=== PATIENT | male | born 1965 | race Caucasian/White ===

== ENCOUNTER 2016-07-11 12:59 | Inpatient (IN) | payer BC, OTHER ==
[~2016-07-11] VITALS: Ht 177.8 cm; Wt 129.0 kg
[2016-07-11] VITALS (20 sets, daily range): BP systolic 113–142; BP diastolic 64–88; PULSE 84–98; RESP 11–24; Ht 177.8 cm; Wt 129.0 kg
[2016-07-11] MEDS ORDERED: CEFAZOLIN 2 GM/50 ML (PMX) 50 ML IVPB ONE (13:30)
[2016-07-11] MEDS ORDERED: LACTATED RINGER'S 1,000 ML IV* ONE (13:30)
[2016-07-11] MEDS ORDERED: OMEP20CA16 PO (13:41)
[2016-07-11] MEDS ORDERED: METO100T13 PO (13:41)
[2016-07-11] MEDS ORDERED: TAMS0.4C2 PO (13:42)
[2016-07-11] MEDS ORDERED: SIMV40TA2 PO (13:43)
[2016-07-11] MEDS ORDERED: AMLO1CAP10 PO (13:43)
[2016-07-11] MEDS ORDERED: DULO60CA59 PO (13:43)
[2016-07-11] MEDS ORDERED: DIAZ10TA4 PO (13:44)
[2016-07-11] MEDS ORDERED: CYCL-319 PO (13:44)
[2016-07-11] MEDS ORDERED: SITA100T8 PO (13:51)
[2016-07-11] MEDS ORDERED: OXYC5CAP17 PO (13:51)
[2016-07-11] MEDS ORDERED: ALLO300T2 PO (13:52)
[2016-07-11] MEDS ORDERED: METO10TA92 PO (13:53)
[2016-07-11] MEDS ORDERED: METF1000 PO (13:54)
[2016-07-11] MEDS ORDERED: LANT3I SC (13:55)
[2016-07-11] MEDS ORDERED: SUMA100T4 PO (13:56)
[2016-07-11] MEDS ORDERED: ELUX75TA PO (13:57)
[2016-07-11] MEDS ORDERED: [UNRECOGNIZED DRUG - CODE] PO (14:01)
--- NOTE | 2016-07-11 15:53 | HPN ---
Date/Time of Note Date/Time of Note DATE: 07/11/16 TIME: 15:52 Interval H&P Admission Note Pt. seen H&P reviewed: No system changes LE MINAYA MD July 11, 2016 15:53
[2016-07-11] MEDS ORDERED: THROMBIN 5000 UNIT VIAL ONE (16:13)
[2016-07-11] MEDS ORDERED: POLYMYXIN/BACITRACIN 1L IRRIG ONE (16:13)
[2016-07-11] MEDS ORDERED: BUPIVACAINE 0.25%/EPI (SDV) 30 ML INJ ONE (16:13)
[2016-07-11] MEDS ORDERED: FENTAnyl 50 MCG/ML VIAL ONE (16:18)
[2016-07-11] MEDS ORDERED: MIDAZOLAM 1 MG/ML 2 ML INJ ONE (16:18)
[2016-07-11] MEDS ORDERED: SUCCINYLCHOLINE CHLORIDE 100 MG/5 ML SYG IV ONE (16:18)
[2016-07-11] MEDS ORDERED: PROPOFOL 20 ML ONE (16:18)
[2016-07-11] MEDS ORDERED: METOCLOPRAMIDE 10 MG INJ ONE (16:19)
[2016-07-11] MEDS ORDERED: CEFAZOLIN 1 GM INJ ONE (17:15)
[2016-07-11] MEDS ORDERED: ROCURONIUM 50 MG INJ ONE ×2 (17:15→18:08)
[2016-07-11] MEDS ORDERED: DEXAMETHASONE 4 MG/ML 1 ML INJ ONE (17:17)
[2016-07-11] MEDS ORDERED: POLYMYXIN/BACITRACIN 1L IRRIG IRR ONE (17:53)
[2016-07-11] MEDS ORDERED: HEMOSTATIC MATRIX/ THROMBIN 1 EA SYG ZFS ONE (17:54)
[2016-07-11] MEDS ORDERED: METOCLOPRAMIDE 10 MG INJ IV PRN (18:30)
[2016-07-11] MEDS ORDERED: LABETALOL HCL 20MG INJ IV PRN (18:30)
[2016-07-11] MEDS ORDERED: ONDANSETRON 4 MG INJ IV PRN (18:30)
[2016-07-11] MEDS ORDERED: MEPERIDINE 25 MG INJ IV PRN (18:30)
[2016-07-11] MEDS ORDERED: HYDROmorphONE (0.2 MG/ML) 10ML SYG IV PRN ×3 (18:30)
[2016-07-11] MEDS ORDERED: DIPHENHYDRAMINE 50 MG INJ IV PRN (18:30)
[2016-07-11] MEDS ORDERED: hydrALAzine 20 MG INJ IV PRN (18:30)
[2016-07-11] MEDS ORDERED: ETOMIDATE 20 MG INJ ONE (19:01)
--- NOTE | 2016-07-11 19:47 | OPR ---
Date/Time of Note Date/Time of Note DATE: 07/11/16 TIME: 19:39 Operative Report Free Text/Dictation DATE OF OPERATION: 07/11/2016 PREOPERATIVE DIAGNOSES: L3-4 adjacent segment spinal stenosis with neurogenic claudication above prior L4-S1 fusion POSTOPERATIVE DIAGNOSES: L3-4 adjacent segment spinal stenosis with neurogenic claudication above prior L4-S1 fusion OPERATION PERFORMED: L3-4 bilateral laminectomy, medial facetectomy, and foraminotomy SURGEON: Le Minaya MD FORM TAMPING MACHINE OPERATOR: Mariano Schroeder MD ANESTHESIA: General endotracheal ESTIMATED BLOOD LOSS: 300 mL COMPLICATIONS: None SURGICAL INDICATION: The patient is a 50 year-old woman who presents with an increasing history of bilateral lower extremity pain. He has a past medical history significant for a L4-S1 posterior spinal instrumented fusion. The patient was unable to ambulate significant distances secondary to their pain. The patient had failed conservative treatment. Risks, benefits, and alternatives to a decompressive procedure including but not exclusive of risks of bleeding, infection, nerve injury, cauda equina syndrome, iatrogenic instability requiring fusion, dural tear, myocardial infarction, stroke, pulmonary embolism were explained to the patient, and she wished to proceed. DESCRIPTION OF TECHNIQUE: The patient was identified in the preoperative area and taken to the operating room. Rapid induction of general endotracheal anesthesia was performed. Patient was given 3 g of cefazolin for prophylaxis. The patient was then placed in the prone position on the Kevyn flat top table on a Tyron frame with all bony prominences well padded. The back was prepped and draped in usual sterile manner. Using 2 spinal needles and intraoperative fluoroscopy, the L3-4 level was clearly identified. The skin was injected using 0.25% Marcaine with epinephrine. Longitudinal midline incision was then created using a 10 blade. Further dissection through soft tissue was performed using electrocautery down to the bilateral spinous processes. Dissection was taken down the bilateral lamina and over the facet joint capsules of L3-4. A self-retaining retractor was applied. Again, intraoperative fluoroscopy confirmed the level. The microscope was brought into use for microdissection. The L3 spinous process and interspinous ligaments were removed using an rongeur. The high-speed bur was used to thin bilateral L3 lamina. Kerrison rongeurs were then used to resect bilateral lamina, and a small portion of the medial facets and the bone overlying the foramen. Ligamentum flavum was also resected using the Kerrison rongeurs. There was a portion of scar tissue adherent to the dural inferiorly. This was meticulously dissected using a series of curretes and resected using a series of Kerrisons. Care was taken to protect the thecal sac throughout the decompressive procedure. Palpation with a ball-tip probe did not reveal any further stenosis in the central, subarticular, or foraminal areas. The exiting L3 nerve root and traversing L4 nerve roots were both directly visualized bilaterally and noted to be decompressed. The cephalad and caudad extent of the decompression were also confirmed using ball-tip probes and intraoperative fluoroscopy. The wound was irrigated copiously using normal saline. Meticulous attention was paid toward hemostasis using bipolar cautery, FloSeal, Gelfoam and thrombin. Care was taken to remove all FloSeal and Gelfoam and thrombin prior to wound closure. A medium hemovac was placed and the fascia was then closed using 1 Vicryl in an interrupted fashion. Subcutaneous tissue was closed using 2-0 Vicryl in interrupted fashion. Skin was closed using a running 4-0 Monocryl stitch. The wound was dressed using Dermabond, sterile 4x4 gauze and Tegaderm. The patient was returned to the supine position. They were extubated immediately postoperatively and taken to the recovery room in stable condition. Estimated Blood Loss: 250 - 300 ml's Complications: None Pt Condition Post Procedure: stable Disposition: PACU LE MINAYA MD July 11, 2016 19:47
[2016-07-11] MEDS ORDERED: NALOXONE (0.4 MG/ML) INJ IV PRN (20:00)
[2016-07-11] MEDS ORDERED: NACL 0.9% 3 ML SYG IV SCH (20:00)
[2016-07-11] MEDS ORDERED: PROCHLORPERAZINE 10 MG TAB PO PRN (20:00)
[2016-07-11] MEDS ORDERED: INSULIN GLARGINE [LANtus] 3 ML PEN SC SCH (20:00)
[2016-07-11] MEDS ORDERED: HYDROCODONE/APAP (5/325) TAB PO PRN ×2 (20:00)
[2016-07-11] MEDS: HYDROmorphONE 0.2 MG/ML PCA IV SCH (20:01)
[2016-07-11] MEDS ORDERED: DEXTROSE 50% 50 ML SYRINGE IV PRN ×2 (21:00)
[2016-07-11] MEDS: ACCU-CHEK XX SCH (21:00)
[2016-07-11] MEDS ORDERED: GLUCOSE GEL 15 GRAM TUBE BUCCAL PRN (21:00)
[2016-07-11] MEDS ORDERED: GLUCAGON 1 MG INJ IM PRN (21:00)
[2016-07-11] MEDS ORDERED: GLUCOSE GEL 15 GRAM TUBE PO PRN ×2 (21:00)
[2016-07-11] MEDS ORDERED: metFORMIN 500 MG TAB PO ONE (22:30)
[2016-07-11] MEDS ORDERED: INSULIN GLARGINE [LANtus] 3 ML PEN SC ONE (22:30)
[2016-07-12] MEDS: HYDROmorphONE 0.2 MG/ML PCA IV SCH ×2 (00:57→10:59)
[2016-07-12] MEDS: CEFAZOLIN 1 GM/50 ML (PMX) 50 ML IVPB SCH ×4 (01:32→17:39)
[2016-07-12] MEDS: ACCU-CHEK XX SCH ×5 (02:56→21:11)
[2016-07-12 04:56] LABS: HEMATOCRIT 38.7 % (42.0-52.0); HEMOGLOBIN 12.8 g/dl (14.0-18.0)
[2016-07-12 05:47] LABS: CALCIUM 8.8 mg/dl (8.4-10.2); CREATININE 0.83 mg/dl (0.61-1.24); POTASSIUM 4.3 mmol/L (3.5-5.1)
--- NOTE | 2016-07-12 07:18 | PREOPHP ---
DATE OF ADMISSION: 07/11/2016 MEDICAL CONSULTATION REFERRING PHYSICIAN: Dr. Minaya. Thank you Dr. Minaya for asking me to see this patient in medical consultation. INTRODUCTION: This is a 50-year-old male scheduled for a lumbar vertebral 3 decompression. HISTORY OF PRESENT ILLNESS: Apparently, the patient has long-standing history of cervical and lumba r degenerative disk disease. The patient has had L4-S1 fusion in the past. The patient recently wa s treated with epidural which failed. He has been complaining of persistent low back pain radiating to the lower extremities. PAST MEDICAL HISTORY: Significant for: 1. History of diabetes mellitus type 2. 2. History of gout. 3. Hyperlipidemia 4. Hypertension. 5. Depression. 6. Gastroparesis. 7. Insomnia. PAST SURGICAL HISTORY: Significant for: 1. L4-S1 laminectomy and then fusion in 2011. 2. Cervical spine fusion x2, between C4 and C7. 3. Right clavicle open reduction internal fixation. 4. Bilateral knee surgery, open surgery on the left side and arthroscopic surgery on the right side . MEDICATIONS: Patient's medications include: 1. Fosamax 0.4 at bedtime. 2. Cymbalta 60 mg daily. 3. Toprol XL 100 mg daily. 4. Lotrel 5/20 daily. 5. Omeprazole 20 mg daily. 6. Simvastatin 40 mg at bedtime. 7. Niaspan 500 mg daily. 8. Lantus 15 units in the morning. 9. Allopurinol 300 mg every other day. 10. Reglan 10 mg 3 times p.r.n. 11. Januvia 100 mg daily. 12. Tylenol p.r.n. 13. Diazepam 10 mg at bedtime p.r.n. 14. Oxycodone 5 mg 3 times as needed. ALLERGIES: PATIENT DOES NOT HAVE DRUG ALLERGIES. SOCIAL HISTORY: Negative history of alcohol or drug abuse. He used to smoke a pack per day for 10, quit 16 years ago. Single, no kids, stays at home. FAMILY HISTORY: Father at the age of 75. He has AML. He had hypertension, hyperlipidemia. M other 76. She has diabetes, high blood pressure, degenerative disk disease. The patient has 1 sist er who has a history of diabetes mellitus. REVIEW OF SYSTEMS: GENERAL: Denies fever, chills, gaining or losing weight. EYES: Negative for double, blurred vision, eye pain. ENT: Negative for sore throat, ear pain, and congestion. CARDIOVASCULAR: Negative for chest pain, PND, palpitation. RESPIRATORY: Negative for shortness of breath, cough, hemoptysis. GASTROINTESTINAL: Negative for nausea, vomiting, constipation, diarrhea, abdominal pain. GENITOURINARY: Negative for dysuria, frequency, nocturia. ENDOCRINOLOGY: The patient with history of diabetes mellitus. Negative history of thyroid dysfunct ion. HEMATOLOGY: Negative history of easy bruising or bleeding. NEUROLOGICAL: The patient denies any history of seizure, stroke, numbness, tingling, weakness. PHYSICAL EXAMINATION: VITAL SIGNS: Well-developed, obese male in no acute distress. VITAL SIGNS: Temperature 97.1, heart rate 60, respiratory rate 16, blood pressure 115/80. HEAD: Atraumatic, normocephalic. SKIN: No rash, no lesion, no bruises, no hematomas. NECK: Supple. No lymphadenopathy, no thyromegaly. Negative for jugular vein distention. Negative for carotid bruits. HEENT: Pupils equal, round, reactive to light and accommodation. Extraocular movements intact. No peripheral edema. Ears: Normal tympanic membranes bilateral. Nose: Clear. Throat: No erythema , no exudate. HEART: Regular rate and rhythm. Normal S2. Normal S2. No S3. No S4. No murmur. No gallops. LUNGS: Clear to auscultation bilaterally. No rales. No wheezes. ABDOMEN: Soft, nontender, nondistended, positive bowel sounds. Negative hepatosplenomegaly. EXTREMITIES: No Dr. Cecilio Graham dicated medical constuation for Dr. Le Minaya MD. Dictated By: LE SAMS/MARK Conf#: [id number] DID#: [id number] CC: LE MINAYA MD;*EndCC*
--- NOTE | 2016-07-12 07:29 | CONS ---
DATE OF ADMISSION: 07/11/2016 DATE OF CONSULTATION: Thank you, Dr. Fuentes, for asking me to see this patient in medical consultation. INTRODUCTION: This is a 50-year-old male scheduled for an L3 decompression surgery due to severe de generative disk disease. HISTORY OF PRESENT ILLNESS: Apparently the patient has a longstanding history of cervical lumbar sp ine and degenerative disk disease. The patient has had a L4 through S1 fusion in the past. Now, th e patient developed severe pain radiating into both legs. The patient was treated with epidural and failed it. Now he has been scheduled for decompression surgery. PAST MEDICAL HISTORY: 1. History of diabetes mellitus type 2. 2. Hypertension. 3. Hyperlipidemia. 4. Gastroparesis. 5. Insomnia. 6. Depression. 7. Obesity. PAST SURGICAL HISTORY: Significant for: 1. L4 through S1 laminectomy and fusion in 2011. 2. Cervical spine fusion x2, C4 through C7 3. Right clavicle open reduction internal fixation. 4. Bilateral knee surgery, left open surgery and a right arthroscopy. MEDICATIONS: Patient medications include: 1. Flomax 0.4 at bedtime. 2. Cymbalta 30 mg daily. 3. Toprol-XL 100 mg daily. 4. Lotrel 5/20 daily. 5. Omeprazole 20 mg daily. 6. Simvastatin 40 mg daily. 7. Niaspan 500 mg daily. 8. Lantus 50 units daily. 9. Allopurinol 300 mg every other day. 10. Metformin 1000 twice a day. 11. Januvia 100 daily. 12. Reglan 10 mg 3 times p.r.n. 13. Oxycodone 5 mg 3 times as needed. 14. Tylenol as needed. 15. Flexeril as needed. ALLERGIES: NO KNOWN DRUG ALLERGIES. SOCIAL HISTORY: The patient used to smoke a pack per day for 10 years, quit 16 years ago. Negative history of alcohol, drug abuse and single, no kids. He lives with his mother. FAMILY HISTORY: Father at age of 75 from AML. He had high blood pressure, hyperlipidemia. Mo ther is 76. She has diabetes mellitus, high blood pressure. One sister, prediabetes. REVIEW OF SYSTEMS: GENERAL: Denies fever, chills, gaining or losing weight. Eyes: Negative for double blurry vision, eye pain. ENT: Negative for sore throat, ear pain and congestion. CARDIOVASCULAR: Negative for chest pain, PND, palpitation. RESPIRATORY: Negative for shortness of breath, cough, hemoptysis. GASTROINTESTINAL: Negative for nausea, vomiting, constipation, diarrhea, abdominal pain. The patie nt has history of gastroparesis. GENITOURINARY: Negative for dysuria, frequency, nocturia. ENDOCRINOLOGY: The patient has history of diabetes mellitus. Negative history of thyroid dysfuncti on. HEMATOLOGY: Negative history of easy bruising and bleeding. NEUROLOGICAL: The patient denies any history of seizure, stroke, numbness, tingling, weakness. PHYSICAL EXAMINATION: VITAL SIGNS: Well-developed, obese male in no acute distress. VITAL SIGNS: Temperature 97.1, heart rate 60, respiratory rate 16, blood pressure 115/80. HEENT: Atraumatic, normocephalic. SKIN: No rash, no lesion, no bruises, no hematomas. NECK: Supple, no lymphadenopathy, no thyromegaly. Negative jugular venous distention. Negative fo r carotid bruits. HEENT: Pupils equal, round, reactive to light and accommodation. Extraocular movements intact, ___ __ edema. EARS: Normal tympanic membranes bilaterally. Nose clear. Throat, no erythema. No exudate. HEART: Regular rate, rhythm. Normal S1, normal S2. No S3, no S4, no murmur, no gallops. LUNGS: Clear to auscultation bilaterally. No rales, no wheezes. ABDOMEN: Soft, nontender, nondistended. Positive for bowel sounds. Negative for hepatosplenomegal y. EXTREMITIES: No cyanosis, clubbing, edema. NEUROLOGIC: Patient is alert and oriented x3. Cranial nerves II through XII grossly intact. No mo tor or sensory deficit. Deep tendon reflexes 2+ bilaterally. LABORATORY DATA: Showed a sodium 137, potassium 4.3, chloride 95, bicarbonate 31, BUN 25, creatinin e 1.5, blood shoulder 125. AST 23, ALT 51, alkaline phosphatase 53, total bilirubin 0.5, WBC count 6.6, hemoglobin 15.0, hematocrit 45.4, platelets 181. PT 11.5, INR 1.08, PTT 34.8, hemoglobin A1c 6 .8. Urinalysis negative for WBC, negative for RBC. ELECTROCARDIOGRAM: Showed sinus rhythm at rate of 80, no acute ST or T changes. Chest x-ray: No c ardiomegaly, no infiltrate. ASSESSMENT: 1. A 50-year-old male with lumbar spine degenerative disease, scheduled for an L3 decompression liam carlos. 2. History of diabetes mellitus. 3. History of hypertension. 4. History of hyperlipidemia. 5. History of gastroparesis. 6. History of gout. 7. Obesity. 8. Depression. RECOMMENDATIONS: According to [employer], patient possesses mild to moderate risk of perioperative cardiovascular complication. Patient was advised not to take aspirin and nonstero idal anti-inflammatory medication prior to the surgery. At this time, patient will be medically junito ared for upcoming surgery. Dr. Cecilio Peck dictating Pre-Operative Conultation for Dr. Nel Fuentes MD. Dictated By: LE SAMS/MARK Conf#: [id number] DID#: [id number]
[2016-07-12] MEDS: INSULIN ASPART [NOVOLOG] 3 ML PEN SC SCH ×8 (07:50→21:00)
[2016-07-12 08:17] VITALS: BP 143/82; RESP 16
[2016-07-12] MEDS: LINAGLIPTIN 5 MG TABLET PO SCH (09:09)
[2016-07-12] MEDS: metFORMIN 500 MG TAB PO SCH ×2 (09:09→17:38)
[2016-07-12] MEDS: ONDANSETRON 4 MG INJ IV PRN ×2 (09:09→18:05)
[2016-07-12] MEDS ORDERED: BENAZEPRIL 10 MG TAB PO SCH (11:30)
[2016-07-12] MEDS ORDERED: AMLODIPINE 5 MG TAB PO SCH (11:30)
[2016-07-12 11:43] VITALS: BP 135/74; PULSE 90
[2016-07-12] MEDS: METOPROLOL 100 MG TAB PO SCH (11:43)
--- NOTE | 2016-07-12 12:02 | RADRPT ---
PROCEDURE: XR Lumbar Spine. CLINICAL INDICATION: Lumbar spine fusion. TECHNIQUE: Lumbar spine x-rays, 3 intraoperative fluoroscopic views. Fluoroscopy time: 9.9 second s. COMPARISON: None. FINDINGS: L4-S1 posterior spinal fusion hardware is in place. An intervertebral disk spacer is observed at L4 -L5. Surgical instrumentation is seen within the posterior spinal soft tissues at the level of L3-L 4. IMPRESSION: Surgical changes compatible with L4-S1 posterior spinal fusion. Surgical instrumentation identified within the posterior soft tissues at L3-L4. RPTAT: HLST .Ellen Sierra MD, Date Time Electronically viewed and signed by .Ellen Sierra MD, on 07/12/2016 12:01 .T/
[2016-07-12] MEDS: oxyCODONE 5 MG TAB PO PRN ×3 (12:59→21:59)
[2016-07-12] MEDS ORDERED: oxyCODONE 5 MG TAB PO PRN ×2 (13:00)
--- NOTE | 2016-07-12 14:05 | CONS ---
Date/Time of Note Date/Time of Note DATE: 07/12/16 TIME: 13:54 Assessment/Plan Assessment/Plan Problems: (1) Status post lumbar spinal fusion Status: Acute Comment: He is postoperative yesterday. He is doing well as of today will start physical therapy. His ultimate rehabilitation potential be based upon how much she is willing to put into this. (2) Diabetic gastroparesis associated with type 2 diabetes mellitus Status: Chronic Comment: Continue with metoclopramide. (3) Chronic pain syndrome Status: Chronic Comment: Noted. Please note that he is very likely of low testosterone state which may have some effects on recovery due to the long-term opiates. I will go ahead and give him a single dose of testosterone to help him get over this jason of surgery (4) Dysthymia Status: Chronic Comment: Noted continue medications (5) Benign prostatic hypertrophy Status: Chronic Comment: Resume tamsulosin Qualifiers: Qualified Code: N40.1 - Benign prostatic hyperplasia with lower urinary tract symptoms, unspecified morphology (6) Gout Status: Chronic Comment: Noted. Due to the stress of surgery be observant for flares. Qualifiers: Qualified Code: [id number].[id number] - Idiopathic chronic gout without tophus, unspecified site (7) Hyperlipidemia associated with type 2 diabetes mellitus Status: Chronic Comment: Resume statin therapy (8) Hypertension, essential Status: Chronic Comment: Continue with KRYSTLE inhibitor therapy. Please note may want to reduce the amlodipine in favor of higher dose KRYSTLE inhibitors to protect his kidneys (9) Diabetes mellitus type 2 in obese Status: Chronic Comment: Continue his outpatient regimen plus sliding scale to fine-tune (10) Obesity, morbid, BMI 40.0-49.9 Status: Chronic Comment: Calorie restriction diet Consultation Date/Type/Reason Admit Date/Time July 11, 2016 at 12:59 Date of Consultation: July 12, 2016 Type of Consultation: Internal medicine; endocrinolo Reason for Consultation Assist with postoperative management of medical issues Referring Provider: LE MINAYA MD Hx of Present Illness 50-year-old male with a history of 2 prior cervical spine surgeries done sequentially and a prior lumbar spine surgery. He had spinal stenosis above the level of the prior lumbar spinal surgery was brought in for elective repair. He had been apparently medically cleared for the procedure by his primary physician Dr. Cecilio Kinney. Constitutional: no complaints Eyes: no complaints ENT: no complaints Respiratory: no complaints Cardiovascular: no complaints Gastrointestinal: no complaints Genitourinary: no complaints Past Medical History Diabetes mellitus type 2 complicated by diabetic gastroparesis and peripheral neuropathy.; Hypertension; hyperlipidemia; hyperuricemiagout; chronic pain syndrome; gastroesophageal reflux disease; morbid obesity; osteoarthrosis/DJD; chronic pain syndrome. 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 Exam/Review of Systems Vital Signs Vitals Vital Signs Date Time Temp Pulse Resp B/P Pulse Ox O2 Delivery O2 Flow Rate FiO2 07/12/16 13:08 18 07/12/16 11:43 90 135/74 07/12/16 08:17 98.9 98 07/11/16 23:00 Nasal Cannula 2.0 Intake and Output 07/11/16 07/11/16 07/12/16 15:00 23:00 07:00 Intake Total 2000 ml 480 ml Output Total 1155 ml 2130 ml Balance 845 ml -1650 ml Exam Constitutional: alert, oriented Head: atraumatic, normocephalic Eyes: EOMI, nl conjunctiva, nl lids, nl sclera Neck: non-tender, supple Respiratory: clear to auscultation, normal air movement Cardiovascular: nl pulses, regular rate and rhythm Gastrointestinal: nl liver, spleen, non-tender, soft Results Result Diagram: 07/12/16 0432 07/12/16 0432 Results 24 hrs Laboratory Tests Test 07/11/16 14:18 07/11/16 20:07 07/11/16 21:57 07/12/16 00:17 Bedside Glucose 179 206 212 196 Test 07/12/16 03:42 07/12/16 04:32 07/12/16 09:08 07/12/16 12:37 Bedside Glucose 221 H 182 151 Hemoglobin 12.8 L Hematocrit 38.7 L Sodium Level 137 Potassium Level 4.3 Chloride Level 98 Carbon Dioxide Level 28 Anion Gap 15 Blood Urea Nitrogen 16 Creatinine 0.83 Glucose Level 239 H Calcium Level 8.8 Medications Medications Current Medications Acetaminophen/ Hydrocodone Bitart ([place] (5/325)) 1 tab Q4H PRN PO PAIN LEVEL 1 -5; Start 07/11/16 at 20:00; Status Future Hold Acetaminophen/ Hydrocodone Bitart 2 tab 2 tab Q4H PRN PO PAIN LEVEL 6-10; Start 07/11/16 at 20:00; Status Future Hold Cefazolin Sodium (Ancef 1 Gm/50 ml (Pmx)) 50 ml @ 100 mls/hr Q6 IVPB Last administered on 07/12/16 11:42; Admin Dose 100 MLS/HR; Start 07/12/16 at 00:00 ; Stop 07/12/16 at 18:29 Prochlorperazine (Compazine) 10 mg Q4H PRN PO NAUSEA AND/OR VOMITING; Start at 20:00 Ondansetron HCl (Zofran Inj) 4 mg Q6H PRN IV NAUSEA AND/OR VOMITING Last administered on 07/12/16 09:09; Admin Dose 4 MG; Start 07/11/16 at 20:00 Naloxone HCl (Narcan) 0.2 mg Q2M PRN IV RR 8 BREATHS/MIN OR LESS; Start at 20:00 Insulin Glargine (Lantus) 32 unit DAILY@20 SC ; Start 07/11/16 at 20:00 Linagliptin (Tradjenta) 5 mg DAILY PO Last administered on 07/12/16 09:09; Admin Dose 5 MG; Start 07/12/16 at 09:00 Diagnostic Test (Pha) (Accu-Chek) 1 ea 02 XX Last administered on 07/12/16 02: 56; Admin Dose 1 EA; Start 07/12/16 at 02:00 Miscellaneous Information 1 ea NOTE XX ; Start 07/11/16 at 21:00 Glucose (Glutose) 15 gm Q15M PRN PO DECREASED GLUCOSE; Start 07/11/16 at 21:00 Glucose (Glutose) 22.5 gm Q15M PRN PO DECREASED GLUCOSE; Start 07/11/16 at 21: 00 Dextrose (D50w Syringe) 25 ml Q15M PRN IV DECREASED GLUCOSE; Start 07/11/16 at 21:00 Dextrose (D50w Syringe) 50 ml Q15M PRN IV DECREASED GLUCOSE; Start 07/11/16 at 21:00 Glucagon (Glucagen) 1 mg Q15M PRN IM DECREASED GLUCOSE; Start 07/11/16 at 21:00 Glucose (Glutose) 15 gm Q15M PRN BUCCAL DECREASED GLUCOSE; Start 07/11/16 at 21 :00 Metoprolol Tartrate (Lopressor) 100 mg DAILY PO Last administered on 07/12/16 11:43; Admin Dose 100 MG; Start 07/12/16 at 11:30 Amlodipine Besylate (Norvasc) 5 mg DAILY PO Last administered on 07/12/16 11: 42; Admin Dose 5 MG; Start 07/12/16 at 11:30 Benazepril HCl (Lotensin) 10 mg DAILY PO Last administered on 07/12/16 11:43; Admin Dose 10 MG; Start 07/12/16 at 11:30 Oxycodone HCl (Roxicodone) 5 mg Q4H PRN PO PAIN; Start 07/12/16 at 13:00 Oxycodone HCl (Roxicodone) 10 mg Q4H PRN PO PAIN Last administered on 12:59; Admin Dose 10 MG; Start 07/12/16 at 13:00 KIKO MARSHALL MD July 12, 2016 14:04
[2016-07-12] MEDS: HYDROmorphONE 1 MG/ML SYG IV PRN ×3 (15:10→20:56)
[2016-07-12] MEDS ORDERED: TESTOSTERONE CYPIONATE 200 MG/ML INJ IM ONE (16:00)
[2016-07-12] MEDS ORDERED: PATIENT'S OWN MEDICATION PO SCH (17:55)
--- NOTE | 2016-07-12 19:00 | PN ---
DATE: 07/12/2016 ORTHOPEDIC SPINE PROGRESS NOTE SUBJECTIVE: The patient is a 50-year-old male postop day 1 status post L3 to L4 decompression for a djacent segment disease above a prior L4 to S1 posterior spinal instrumented fusion. The patient is currently doing well. He was able to ambulate without too much difficulty with physical therapy. His pain is currently being controlled with a Dilaudid BUTTON CLAMPER. He had no acute overnight events. He h ad 1 episode of elevated blood sugars, which is currently under control. OBJECTIVE: VITAL SIGNS: He is currently afebrile. Vital signs stable. GENERAL: He is alert and oriented x3, in no acute distress. SPINE: The patient's posterior midline incision is dry. The area of the drain has some mild serosa nguineous fluid. His drain output was minimal of up to 20 mL over the last 2 shifts. He has 5/5 st rength in his bilateral tibia, gastrocnemius, soleus and EHL. His quad and knee flexors are 4+/5 bi laterally. Gross sensation to light touch is intact in the L3 to S1 nerve distributions. ASSESSMENT: A 50-year-old male postop day 1 status post L3 to L4 decompression doing well. PLAN: At this time, we will discontinue the patient's BUTTON CLAMPER and start him on oxycodone 5 mg to 10 mg p.o. q.4 to 6h. p.r.n. pain. We will have 1 mg of Dilaudid IV available q.4h. p.r.n. breakthrough pain. We will have him continue to work with physical therapy. We will discontinue the [address]. We anticipate that he will be discharged tomorrow once he works with physical therapy and has his pain under good control. Dictated By: LE SAMS/MARK Conf#: [id number] DID#: [id number]
[2016-07-12] MEDS: ATORVASTATIN 40 MG TAB PO SCH (20:55)
[2016-07-12] MEDS: TAMSULOSIN (SR) 0.4 MG CAP PO SCH (20:56)
[2016-07-12 21:06] VITALS: BP 122/76; RESP 19
[2016-07-12] MEDS: INSULIN GLARGINE [LANtus] 3 ML PEN SC SCH (21:10)
[2016-07-12] MEDS ORDERED: HYDROmorphONE 1 MG/ML SYG IV ONE (23:30)
[2016-07-13] MEDS: HYDROmorphONE 1 MG/ML SYG IV PRN ×4 (01:09→22:16)
[2016-07-13] MEDS: ACCU-CHEK XX SCH ×5 (02:00→21:00)
[2016-07-13] MEDS: oxyCODONE 5 MG TAB PO PRN ×4 (03:47→16:56)
[2016-07-13 07:00] VITALS: BP 138/66; RESP 18
--- NOTE | 2016-07-13 07:28 | PDOCDIS ---
Discharge Instructions CONDITION Patient Condition: Good HOME CARE INSTRUCTIONS: Diet Instructions: RegularSpecial Diet: Carb Controlled Diet ACTIVITY: Activity Restrictions: Avoid heavy lifting Bathing Restrictions: Shower FOLLOW UP/APPOINTMENTS Appointments Follow-up in 2 weeks with LE Veloz MD July 13, 2016 07:27
[2016-07-13] MEDS: ONDANSETRON 4 MG INJ IV PRN (08:38)
[2016-07-13] MEDS: LINAGLIPTIN 5 MG TABLET PO SCH (08:38)
[2016-07-13] MEDS: metFORMIN 500 MG TAB PO SCH ×2 (08:38→17:44)
[2016-07-13] MEDS: BENAZEPRIL 20 MG TAB PO SCH (08:39)
[2016-07-13] MEDS: AMLODIPINE 2.5 MG TAB PO SCH (08:39)
[2016-07-13] MEDS: METOPROLOL 100 MG TAB PO SCH (08:39)
[2016-07-13] MEDS: oxyCODONE (CR) 10 MG TAB [oxyCONTIN] PO SCH ×2 (08:40→21:07)
[2016-07-13] MEDS: INSULIN ASPART [NOVOLOG] 3 ML PEN SC SCH ×7 (08:41→21:00)
[2016-07-13] MEDS ORDERED: HYDROmorphONE 1 MG/ML SYG IV PRN (09:00)
--- NOTE | 2016-07-13 10:32 | PN ---
Date/Time of Note Date/Time of Note DATE: 07/13/16 TIME: 10:28 Assessment/Plan VTE Prophylaxis VTE Prophylaxis Intervention: SCD's Lines/Catheters IV C[facility]ter Type (from [facility] Urinary Cath still in place: No Assessment/Plan Chief Complaint/Hosp Course 50-year-old male with a history of 2 prior cervical spine surgeries done sequentially and a prior lumbar spine surgery. He had spinal stenosis above the level of the prior lumbar spinal surgery was brought in for elective repair. He had been apparently medically cleared for the procedure by his primary physician Dr. Cecilio Kinney. Problems: (1) Status post lumbar spinal fusion Status: Acute Comment: He is recuperating. I am of the opinion that if we tried to send him home today that would be a recipe for disaster. Will have physical therapy work with him today as well as arrange for home health. Please note that his support at home is his elderly mother who has Parkinson's disease. There is no evidence of any untoward complications postoperatively (2) Diabetic gastroparesis associated with type 2 diabetes mellitus Status: Chronic Comment: Resume mealtime metoclopramide (3) Chronic pain syndrome Status: Chronic Comment: He is receiving pain medications although his response to the pain medication due to the chronic pain syndrome and chronic narcotic therapy will be blunted compared to other patients who do not have this background. In addition he does have a modest hypogonadal state induced by the chronic pain medications. Continue to work with him on his pain relief (4) Benign prostatic hypertrophy Status: Chronic Comment: Noted and relatively stable. He is able to urinate if we stand him up which is a common finding in gentleman of our age Qualifiers: Prostatic enlargement morphology: unspecified morphology Lower urinary tract symptom presence: symptoms present Qualified Code: N40.1 - Benign prostatic hyperplasia with lower urinary tract symptoms, unspecified morphology (5) Gout Status: Chronic Comment: Quiescent Qualifiers: Gout site: unspecified site Gout etiology: idiopathic Chronicity: chronic Presence of tophus: without tophus Qualified Code: [id number].[id number] - Idiopathic chronic gout without tophus, unspecified site (6) Hyperlipidemia associated with type 2 diabetes mellitus Status: Chronic Comment: Continue statin therapy (7) Hypertension, essential Status: Chronic Comment: Adequately controlled on current regimen (8) Diabetes mellitus type 2 in obese Status: Chronic Comment: Adequately controlled on current regimen (9) Obesity, morbid, BMI 40.0-49.9 Status: Chronic Comment: Calorie restriction diet Assessment/Plan Postop cough. Use of the incentive spirometer will actually help clear this there is no indication for further more aggressive treatment Subjective 24 Hr Interval Summary Free Text/Dictation Patient reports that he is not ready to go home yet. He is having difficulty getting up and ambulating and difficulty voiding. Constitutional: no complaints (Denies fevers chills or sweats) Eyes: no complaints Respiratory: no complaints (Denies shortness of breath) Cardiovascular: no complaints (Denies chest pain or palpitations) Gastrointestinal: no complaints (Denies nausea or vomiting) Genitourinary: other (Some difficulty initiating urination) Musculoskeletal: back pain (Pain at the surgical incisional site) Exam/Review of Systems Vital Signs Vitals Vital Signs Date Time Temp Pulse Resp B/P Pulse Ox O2 Delivery O2 Flow Rate FiO2 07/13/16 07:00 97.7 111 18 138/66 96 07/13/16 00:48 Nasal Cannula 2.0 Intake and Output 07/12/16 07/12/16 07/13/16 15:00 23:00 07:00 Intake Total 100 ml 1540 ml 340 ml Output Total 1600 ml Balance 100 ml -60 ml 340 ml Exam Tearful male Constitutional: alert, oriented Neck: non-tender, supple Respiratory: clear to auscultation, normal air movement Cardiovascular: nl pulses, regular rate and rhythm Gastrointestinal: nl liver, spleen, non-tender, soft Results Result Diagram: 07/12/16 0432 07/12/16 0432 Results 24 hrs Laboratory Tests Test 07/12/16 12:37 07/12/16 17:38 07/12/16 20:53 07/13/16 08:37 Bedside Glucose 151 106 102 160 Medications Medications Current Medications Acetaminophen/ Hydrocodone Bitart ([place] (5/325)) 1 tab Q4H PRN PO PAIN LEVEL 1 -5; Start 07/11/16 at 20:00; Status Future Hold Acetaminophen/ Hydrocodone Bitart ([place] (5/325)) 2 tab Q4H PRN PO PAIN LEVEL 6 -10; Start 07/11/16 at 20:00; Status Future Hold Prochlorperazine (Compazine) 10 mg Q4H PRN PO NAUSEA AND/OR VOMITING; Start at 20:00 Ondansetron HCl (Zofran Inj) 4 mg Q6H PRN IV NAUSEA AND/OR VOMITING Last administered on 07/13/16 08:38; Admin Dose 4 MG; Start 07/11/16 at 20:00 Naloxone HCl (Narcan) 0.2 mg Q2M PRN IV RR 8 BREATHS/MIN OR LESS; Start at 20:00 Linagliptin (Tradjenta) 5 mg DAILY PO Last administered on 07/13/16 08:38; Admin Dose 5 MG; Start 07/12/16 at 09:00 Diagnostic Test (Pha) (Accu-Chek) 1 ea 02 XX Last administered on 07/12/16 02: 56; Admin Dose 1 EA; Start 07/12/16 at 02:00 Miscellaneous Information 1 ea NOTE XX ; Start 07/11/16 at 21:00 Glucose (Glutose) 15 gm Q15M PRN PO DECREASED GLUCOSE; Start 07/11/16 at 21:00 Glucose (Glutose) 22.5 gm Q15M PRN PO DECREASED GLUCOSE; Start 07/11/16 at 21: 00 Dextrose (D50w Syringe) 25 ml Q15M PRN IV DECREASED GLUCOSE; Start 07/11/16 at 21:00 Dextrose (D50w Syringe) 50 ml Q15M PRN IV DECREASED GLUCOSE; Start 07/11/16 at 21:00 Glucagon (Glucagen) 1 mg Q15M PRN IM DECREASED GLUCOSE; Start 07/11/16 at 21:00 Glucose (Glutose) 15 gm Q15M PRN BUCCAL DECREASED GLUCOSE; Start 07/11/16 at 21 :00 Metoprolol Tartrate (Lopressor) 100 mg DAILY PO Last administered on 07/13/16 08:39; Admin Dose 100 MG; Start 07/12/16 at 11:30 Oxycodone HCl (Roxicodone) 5 mg Q4H PRN PO PAIN; Start 07/12/16 at 13:00 Oxycodone HCl (Roxicodone) 10 mg Q4H PRN PO PAIN Last administered on 07:45; Admin Dose 10 MG; Start 07/12/16 at 13:00 Tamsulosin HCl (Flomax) 0.4 mg HS PO Last administered on 07/12/16 20:56; Admin Dose 0.4 MG; Start 07/12/16 at 21:00 Atorvastatin Calcium (Lipitor) 40 mg HS PO Last administered on 07/12/16 20:55 ; Admin Dose 40 MG; Start 07/12/16 at 21:00 Amlodipine Besylate (Norvasc) 2.5 mg DAILY PO Last administered on 07/13/16 08 :39; Admin Dose 2.5 MG; Start 07/13/16 at 09:00 Benazepril HCl (Lotensin) 20 mg DAILY PO Last administered on 07/13/16 08:39; Admin Dose 20 MG; Start 07/13/16 at 09:00 Insulin Glargine (Lantus) 35 unit DAILY@20 SC Last administered on 07/12/16 21 :10; Admin Dose 35 UNIT; Start 07/12/16 at 20:00 Oxycodone HCl (Oxycontin) 10 mg BID PO Last administered on 07/13/16 08:40; Admin Dose 10 MG; Start 07/13/16 at 09:00 Hydromorphone HCl (Dilaudid) 1 mg Q4 PRN IV PAIN; Start 07/13/16 at 09:00 KIKO MARSHALL MD July 13, 2016 10:32
[2016-07-13] MEDS: METOCLOPRAMIDE 5 MG TAB PO SCH ×2 (12:50→17:44)
--- NOTE | 2016-07-13 18:33 | PN ---
DATE: ORTHOPEDIC SPINE PROGRESS NOTE SUBJECTIVE: The patient is currently postop day #2 status post L3 to L4 laminectomy and decompression for adjacent segment degeneration above a prior L4 to S1 fusion. He had no acute overnight events. 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 He is currently still requiring IV Dilaudid for pain control. He reports that his pain appears to be somewhat improved since yesterday, but he is still sore over the incision site. He was able to ambulate well with physical therapy yesterday. He is tolerating a regular diet. He was able to urinate without difficulty with Escobar removal. OBJECTIVE: VITAL SIGNS: He has been afebrile. Vital signs stable. GENERAL: Alert and oriented x3, in no acute distress. SPINE: His posterior midline incision has some mild serosanguineous drainage. The drainage has significantly decreased since yesterday. His drain was removed yesterday. The incision has no erythema. He has 4/5 strength in his bilateral hip flexors, knee extensors, 5/5 strength in bilateral tibia, gastrocnemius, soleus and EHL. Gross sensation to light touch is intact in the L3 to S1 nerve distributions. ASSESSMENT: The patient is doing well postop day 2 status post decompression and prior fusion. PLAN: At this time, we will continue to wean off the IV Dilaudid. Given that he is still having pain and requiring the IV Dilaudid, we have started him today on OxyContin 10 mg p.o. b.i.d. Once we get his pain under good control with p.o. pain medications, he will be discharged to home. Plan is for likely discharge tomorrow morning once his pain is under good control with p.o. pain medications. Dictated By: LE SAMS/MARK Conf#: [id number] DID#: [id number] COLLINS
[2016-07-13 19:00] VITALS: BP 121/61; RESP 19
[2016-07-13] MEDS: INSULIN GLARGINE [LANtus] 3 ML PEN SC SCH (20:02)
[2016-07-13] MEDS: ATORVASTATIN 40 MG TAB PO SCH (21:07)
[2016-07-13] MEDS: TAMSULOSIN (SR) 0.4 MG CAP PO SCH (21:07)
--- NOTE | 2016-07-13 21:40 | RADRPT ---
PROCEDURE: XR Lumbar Spine. CLINICAL INDICATION: Laminectomy and decompression TECHNIQUE: AP, cone-down lateral, and lateral views of the lumbar spine were obtained. COMPARISON: None. FINDINGS: Mineralization is within normal limits. Vertebral bodies are normal in height. No fracture is iden tified. Lumbar lordosis is preserved. No vertebral subluxation is seen. Transpedicular screws and lateral bone fusion are present at L4, L5 and S1, the hardware satisfactory appearance. Laminectom y changes are seen at L4-5 and L5-S1 where there is interbody graft material. Paraspinal contours a re unremarkable. RPTAT:HJJR IMPRESSION: Posterior element fusion screws and interbody graft sat L4-5 and L5-S1 with laminectomy changes at t hese levels, findings in good radiographic appearance. Physician Vivienne Date Time Electronically viewed and signed by Physician Vivienne on 07/13/2016 21:40 /
[2016-07-14] MEDS: ACCU-CHEK XX SCH ×3 (02:00→12:48)
[2016-07-14] MEDS ORDERED: HYDROmorphONE 1 MG/ML SYG IV ONE (02:26)
[2016-07-14] MEDS ORDERED: ACETAMINOPHEN 500 MG TAB PO PRN (02:30)
[2016-07-14 06:19] VITALS: BP 125/74; PULSE 94; RESP 18
[2016-07-14] MEDS ORDERED: PANTOPRAZOLE (EC) 40 MG TAB PO SCH (06:30)
[2016-07-14 08:22] VITALS: BP 122/75; RESP 20
[2016-07-14] MEDS: BENAZEPRIL 20 MG TAB PO SCH (09:06)
[2016-07-14] MEDS: oxyCODONE (CR) 10 MG TAB [oxyCONTIN] PO SCH (09:06)
[2016-07-14] MEDS: metFORMIN 500 MG TAB PO SCH (09:06)
[2016-07-14] MEDS: AMLODIPINE 2.5 MG TAB PO SCH (09:07)
[2016-07-14] MEDS: METOPROLOL 100 MG TAB PO SCH (09:08)
[2016-07-14] MEDS: oxyCODONE 5 MG TAB PO PRN ×2 (09:08→12:46)
[2016-07-14] MEDS: METOCLOPRAMIDE 5 MG TAB PO SCH ×2 (09:08→11:10)
[2016-07-14] MEDS: INSULIN ASPART [NOVOLOG] 3 ML PEN SC SCH ×4 (09:12→12:46)
[2016-07-14] MEDS: LINAGLIPTIN 5 MG TABLET PO SCH (09:14)
--- NOTE | 2016-07-14 13:34 | CONS ---
Date/Time of Note Date/Time of Note DATE: 07/14/16 TIME: 13:32 Assessment/Plan Assessment/Plan Chief Complaint/Hosp Course 50-year-old male with a history of 2 prior cervical spine surgeries done sequentially and a prior lumbar spine surgery. He had spinal stenosis above the level of the prior lumbar spinal surgery was brought in for elective repair. He had been apparently medically cleared for the procedure by his primary physician Dr. Cecilio Kinney. Problems: (1) Diabetes mellitus type 2 in obese Status: Chronic Comment: Blood sugar control has been adequate on this regimen. He is now stable for discharge (2) Status post lumbar spinal fusion Status: Acute Comment: There does not appear to have been any untoward complications or side effects from the surgical procedure. He is an appropriate candidate for aggressive rehabilitation program and will proceed as per the directions of the spinal surgeon. (3) Chronic pain syndrome Status: Chronic Comment: This is affecting his view of the world and his pain control. However overall he is doing relatively stable. He is appropriate for discharge (4) Dysthymia Status: Chronic Comment: Noted and stable and compensated (5) Hypertension, essential Status: Chronic Comment: Adequate control Consultation Date/Type/Reason Admit Date/Time July 11, 2016 at 12:59 Initial Consult Date 07/12/16 Type of Consultation: Internal medicine; endocrinolo Referring Provider: LE MINAYA MD 24 HR Interval Summary Constitutional: no complaints Detailed Summary Eyes: no complaints ENT: no complaints Respiratory: no complaints Cardiovascular: no complaints Gastrointestinal: no complaints Genitourinary: no complaints Neurologic: headache (No small his headache but improving no neck stiffness) Exam/Review of Systems Vital Signs Vitals Vital Signs Date Time Temp Pulse Resp B/P Pulse Ox O2 Delivery O2 Flow Rate FiO2 07/14/16 08:22 98.2 100 20 122/75 94 07/14/16 06:19 Nasal Cannula 2.0 Intake and Output 07/13/16 07/13/16 07/14/16 15:00 23:00 07:00 Intake Total 1500 ml 1500 ml Output Total 1200 ml 1300 ml Balance 300 ml 200 ml Exam Constitutional: alert, oriented Head: atraumatic, normocephalic Neck: non-tender (No meningismus), supple Respiratory: clear to auscultation, normal air movement Cardiovascular: nl pulses, regular rate and rhythm Results Result Diagram: 5/23/17 0432 07/12/16 0432 Results 24 hrs Laboratory Tests Test 07/13/16 17:19 07/13/16 20:00 07/14/16 08:48 07/14/16 12:34 Bedside Glucose 140 173 183 188 Medications Medications Current Medications Acetaminophen/ Hydrocodone Bitart ([place] (5/325)) 1 tab Q4H PRN PO PAIN LEVEL 1 -5; Start 07/11/16 at 20:00; Status Future Hold Acetaminophen/ Hydrocodone Bitart ([place] (5/325)) 2 tab Q4H PRN PO PAIN LEVEL 6 -10; Start 07/11/16 at 20:00; Status Future Hold Prochlorperazine (Compazine) 10 mg Q4H PRN PO NAUSEA AND/OR VOMITING; Start at 20:00 Ondansetron HCl (Zofran Inj) 4 mg Q6H PRN IV NAUSEA AND/OR VOMITING Last administered on 07/13/16 08:38; Admin Dose 4 MG; Start 07/11/16 at 20:00 Naloxone HCl (Narcan) 0.2 mg Q2M PRN IV RR 8 BREATHS/MIN OR LESS; Start at 20:00 Linagliptin (Tradjenta) 5 mg DAILY PO Last administered on 07/14/16 09:14; Admin Dose 5 MG; Start 07/12/16 at 09:00 Diagnostic Test (Pha) (Accu-Chek) 1 ea 02 XX Last administered on 07/12/16 02: 56; Admin Dose 1 EA; Start 07/12/16 at 02:00 Miscellaneous Information 1 ea NOTE XX ; Start 07/11/16 at 21:00 Glucose (Glutose) 15 gm Q15M PRN PO DECREASED GLUCOSE; Start 07/11/16 at 21:00 Glucose (Glutose) 22.5 gm Q15M PRN PO DECREASED GLUCOSE; Start 07/11/16 at 21: 00 Dextrose (D50w Syringe) 25 ml Q15M PRN IV DECREASED GLUCOSE; Start 07/11/16 at 21:00 Dextrose (D50w Syringe) 50 ml Q15M PRN IV DECREASED GLUCOSE; Start 07/11/16 at 21:00 Glucagon (Glucagen) 1 mg Q15M PRN IM DECREASED GLUCOSE; Start 07/11/16 at 21:00 Glucose (Glutose) 15 gm Q15M PRN BUCCAL DECREASED GLUCOSE; Start 07/11/16 at 21 :00 Metoprolol Tartrate (Lopressor) 100 mg DAILY PO Last administered on 07/14/16 09:08; Admin Dose 100 MG; Start 07/12/16 at 11:30 Oxycodone HCl (Roxicodone) 5 mg Q4H PRN PO PAIN; Start 07/12/16 at 13:00 Oxycodone HCl (Roxicodone) 10 mg Q4H PRN PO PAIN Last administered on 12:46; Admin Dose 10 MG; Start 07/12/16 at 13:00 Tamsulosin HCl (Flomax) 0.4 mg HS PO Last administered on 07/13/16 21:07; Admin Dose 0.4 MG; Start 07/12/16 at 21:00 Atorvastatin Calcium (Lipitor) 40 mg HS PO Last administered on 07/13/16 21:07 ; Admin Dose 40 MG; Start 07/12/16 at 21:00 Amlodipine Besylate (Norvasc) 2.5 mg DAILY PO Last administered on 07/14/16 09 :07; Admin Dose 2.5 MG; Start 07/13/16 at 09:00 Benazepril HCl (Lotensin) 20 mg DAILY PO Last administered on 07/14/16 09:06; Admin Dose 20 MG; Start 07/13/16 at 09:00 Insulin Glargine (Lantus) 35 unit DAILY@20 SC Last administered on 07/13/16 20 :02; Admin Dose 35 UNIT; Start 07/12/16 at 20:00 Oxycodone HCl (Oxycontin) 10 mg BID PO Last administered on 07/14/16 09:06; Admin Dose 10 MG; Start 07/13/16 at 09:00 Hydromorphone HCl (Dilaudid) 1 mg Q6H PRN IV PAIN Last administered on 22:16; Admin Dose 1 MG; Start 07/13/16 at 15:00 Acetaminophen (Tylenol Tab) 500 mg Q4H PRN PO HEADACHE Last administered on 02:30; Admin Dose 500 MG; Start 07/14/16 at 02:30 Pantoprazole (Protonix Tab) 40 mg BID@06,18 PO Last administered on 07/14/16t 06:35; Admin Dose 40 MG; Start 07/14/16 at 06:30 KIKO MARSHALL MD July 14, 2016 13:34
[2016-07-14] MEDS: HYDROmorphONE 1 MG/ML SYG IV PRN (14:44)
== END 2016-07-14 15:30 | disposition home or self-care (01) | DRG 519 ==
LOC: REC 12:59 → MS1 21:08
PROVIDERS: ADMIT Orthopaedic Surgery; ATTEND Orthopaedic Surgery
PROC: 0SB40ZZ Excision of Lumbosacral Disc, Open Approach (ICD-10-PCS; principal; 2016-07-11 15:30)
DX: M48.07 Spinal stenosis, lumbosacral region (principal); Z68.41 Body mass index [BMI] 40.0-44.9, adult; E11.9 Type 2 diabetes mellitus without complications; G47.30 Sleep apnea, unspecified; E78.5 Hyperlipidemia, unspecified; F32.9 Major depressive disorder, single episode, unspecified; N40.0 Benign prostatic hyperplasia without lower urinary tract symptoms; M10.9 Gout, unspecified; E66.01 Morbid (severe) obesity due to excess calories
CPT/HCPCS: 72100; 80048; 82962; 85014; 85018; 86850; 86900; 86901; 87086; 97116; 97162; 97530; J0690; J1071; J1100; J1170; J1815; J2250; J2405; J2765; J3010; J7120; J7999

== ENCOUNTER 2018-04-16 07:30 | Inpatient (IN) | payer BC ==
[~2018-04-16] VITALS: Ht 175.3 cm; Wt 129.4 kg
[~2018-04-16 07:30] MED LIST: ALLO300T2 PO; AMLO1CAP10 PO; CYCL10TA7 PO; DIAZ10TA4 PO; DULO60CA59 PO; ELUX75TA PO; LANT3I SC; METF100010 PO; METO-336 PO; METO10TA92 PO; OMEP20CA16 PO; OXYC5CAP17 PO; SIMV40TA2 PO; SITA100T11 PO; SUMA100T4 PO; TAMS0.4C2 PO; [UNRECOGNIZED DRUG - CODE] PO
[2018-08-31 17:27] VITALS: BMI 42.3
[2018-09-03] VITALS (22 sets, daily range): BP systolic 103–140; BP diastolic 55–78; PULSE 79–94; RESP 9–19; Ht 175.3 cm; Wt 129.4 kg
[2018-09-03] MEDS ORDERED: LACTATED RINGER'S 1,000 ML IV ONE (05:30)
[2018-09-03] MEDS ORDERED: CLINDAMYCIN 900 MG/D5W (PMX) 50 ML IVPB ONE ×2 (05:30→07:47)
[2018-09-03] MEDS ORDERED: GELATIN SIZE 100 SPONGE ONE (07:00)
[2018-09-03] MEDS ORDERED: BUPIVACAINE 0.5%/EPI (SDV) 30 ML INJ ONE (07:00)
[2018-09-03] MEDS ORDERED: POLYMYXIN/BACITRACIN 1L IRRIG ONE (07:00)
[2018-09-03] MEDS ORDERED: THROMBIN 5000 UNIT VIAL ONE (07:00)
[2018-09-03] MEDS ORDERED: OMEP20CA16 PO (07:07)
[2018-09-03] MEDS ORDERED: METO-319 PO (07:08)
[2018-09-03] MEDS ORDERED: TAMS-14 PO (07:08)
[2018-09-03] MEDS ORDERED: AMLO1CAP12 PO (07:09)
[2018-09-03] MEDS ORDERED: DULO20CA17 PO (07:10)
--- NOTE | 2018-09-03 07:10 | PREAC ---
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 and radiculopathy, S/P prior fusion Planned procedure L3-4 anterior interbody fusion with graft and lateral plate vs posterior instrumented fusion Past Medical History Past Medical History: Includes Cardio: HTN, Dyslipidemia Endo: Diabetes Pulm: Other (Bronchitis) GI: GERD, Morbid obesity Psych: Depression Surgery & Anesthesia Issues No known issue Meds Anticoagulation: No Beta Mukund within 24 hr: Yes Reported Medications Duloxetine Hcl* (Duloxetine Hcl*) 20 Mg Capsule.dr, 40 MG PO DAILY, #30 CAP 09/03/18 Amlodipine Besylate/Benazepril (Amlodipine-Benazepril 10-20 mg) 1 Each Capsule, 1 EACH PO DAILY, CAP 09/03/18 Tamsulosin Hcl* (Flomax*) 0.4 Mg Cap.er.24h, 0.4 MG PO DAILY, CAP 09/03/18 Metoprolol Succinate* (Toprol XL*) 50 Mg Tab.er.24h, 50 MG PO DAILY, #30 TAB 09/03/18 Omeprazole* (Omeprazole*) 20 Mg Capsule.dr, 20 MG PO DAILY, #30 CAP 09/03/18 Discontinued Reported Medications Quinine Sulfate (Quinine Sulfate) 324 Mg Cap, 324 MG PO QHS, CAP 07/11/16 Eluxadoline (Viberzi) 75 Mg Tablet, 75 MG PO BID PRN for DIARRHEA, TAB 07/11/16 Sumatriptan Succinate* (Sumatriptan Succinate*) 100 Mg Tablet, 100 MG PO BID PRN for MIGRAINE HEADACHE, TAB May repeat after 2 hours if needed; MAX 200 mg/24 hours 07/11/16 Insulin Glargine* (Lantus*) 100 Unit/Ml Soln, 60-70 UNIT SC QPM, #1 VIAL 07/11/16 Metformin Hcl* (Metformin Hcl*) 1,000 Mg Tablet, 1000 MG PO WITH BREAKFAST DINNE, #30 TAB 07/11/16 Metoclopramide* (Reglan*) 10 Mg Tablet, 10 MG PO AC MEALS, TAB 07/11/16 Allopurinol* (Allopurinol*) 300 Mg Tablet, 300 MG PO BID, TAB 07/11/16 Sitagliptin* (Januvia*) 100 Mg Tablet, 100 MG PO DAILY, #30 TAB 07/11/16 Oxycodone Hcl* (IR) (Oxycodone Hcl*) 5 Mg Capsule, 5 MG PO TID PRN for PAIN, CAP 07/11/16 Diazepam* (Diazepam*) 10 Mg Tablet, 10 MG PO QHS, TAB 07/11/16 Cyclobenzaprine Hcl* (Cyclobenzaprine Hcl*) 10 Mg Tablet, 10 MG PO QID PRN for MUSCLE SPASMS, #60 TAB 07/11/16 Simvastatin* (Zocor*) 40 Mg Tablet, 40 MG PO QHS, #30 TAB 07/11/16 Duloxetine Hcl* (Duloxetine Hcl*) 60 Mg Capsule.dr, 60 MG PO DAILY, #30 CAP 07/11/16 Amlodipine Besylate/Benazepril (Amlodipine-Benazepril 5-20 mg) 1 Each Capsule, 1 EACH PO DAILY, CAP 07/11/16 Tamsulosin Hcl* (Tamsulosin Hcl*) 0.4 Mg Cap.er.24h, 0.4 MG PO HS, CAP 07/11/16 Metoprolol Succinate* (Toprol XL*) 100 Mg Tab.sr.24h, 100 MG PO DAILY, #30 TAB 07/11/16 Omeprazole* (Omeprazole*) 20 Mg Capsule.dr, 20 MG PO BID, #60 CAP 07/11/16 Meds reviewed: Yes Allergies Coded Allergies: adhesive tape (Verified Allergy, Mild, RASH, 09/03/18) latex (Verified Allergy, Unknown, 09/03/18) Allergies Reviewed: Yes Labs/Studies Labs Reviewed: Reviewed by anesthesiologist test: N/A Pre-procedure Exam Airway: Adequate mouth opening Mallampati: Mallampati II Teeth: Normal Lung: Normal Heart: Normal ASA Physical Status ASA physical status: 3 Emergency: None Planned Anesthetic General/MAC: ETT Planned Pain Management Parenteral pain med Pre-operative Attestations Prior to commencing anesthesia and surgery, the patient was re-evaluated, there was verification of: *The patient's identity *The results of appropriate recent lab work and preoperative vital signs *The above evaluation not changing prior to induction *Anesthetic plan, risk benefits, alternative and complications discussed with patient/family; questions answered; patient/family understands, accepts and wishes to proceed. GABRIELA TURCIOS MD Sep 03, 2018 07:10
[2018-09-03] MEDS ORDERED: EZET1TAB42 PO (07:11)
[2018-09-03] MEDS ORDERED: DIAZ10TA4 PO (07:12)
[2018-09-03] MEDS ORDERED: [UNRECOGNIZED DRUG - CODE] PO (07:13)
[2018-09-03] MEDS ORDERED: ALLO300T2 PO (07:14)
[2018-09-03] MEDS ORDERED: SITA100T11 PO (07:14)
[2018-09-03] MEDS ORDERED: METO10TA3 PO (07:26)
[2018-09-03] MEDS ORDERED: PANT40TA3 PO (07:28)
[2018-09-03] MEDS ORDERED: TRAZ-111 PO (07:28)
[2018-09-03] MEDS ORDERED: LANT3I SC (07:28)
[2018-09-03] MEDS ORDERED: SUCR1TAB56 PO (07:29)
--- NOTE | 2018-09-03 07:31 | HPN ---
Date/Time of Note Date/Time of Note DATE: 09/03/18 TIME: 07:31 Interval H&P Admission Note Pt. seen H&P reviewed: No system changes LE MINAYA MD Sep 03, 2018 07:31
[2018-09-03] MEDS ORDERED: LIDOCAINE 2% (SDV) 5 ML INJ ONE (07:34)
[2018-09-03] MEDS ORDERED: ROCURONIUM 50 MG INJ ONE (07:34)
[2018-09-03] MEDS ORDERED: NEOSTIGMINE 3 MG/3 ML SYRINGE ONE (07:34)
[2018-09-03] MEDS ORDERED: GLYCOPYRROLATE 0.4 MG INJ ONE (07:34)
[2018-09-03] MEDS ORDERED: PROPOFOL 20 ML ONE (07:34)
[2018-09-03] MEDS ORDERED: SUCCINYLCHOLINE CHLORIDE 100 MG/5 ML SYG IV ONE (07:34)
[2018-09-03] MEDS ORDERED: MEPERIDINE 100 MG INJ ONE (07:35)
[2018-09-03] MEDS ORDERED: MIDAZOLAM 1 MG/ML 2 ML INJ IV PRN (10:00)
[2018-09-03] MEDS ORDERED: hydrALAzine 20 MG INJ IV PRN (10:00)
[2018-09-03] MEDS ORDERED: EPHEDrine 25 MG/5 ML SYG IV PRN (10:00)
[2018-09-03] MEDS ORDERED: OXYCODONE/ACETAMINOPHEN (5/325) TAB PO PRN ×2 (10:00)
[2018-09-03] MEDS ORDERED: HYDROmorphONE 1 MG/5 ML IV SYRINGE IV PRN ×3 (10:00)
[2018-09-03] MEDS ORDERED: ONDANSETRON 4 MG INJ IV PRN ×2 (10:00→11:00)
[2018-09-03] MEDS ORDERED: MEPERIDINE 25 MG INJ IV PRN (10:00)
[2018-09-03] MEDS ORDERED: DIPHENHYDRAMINE 50 MG INJ IV PRN (10:00)
[2018-09-03] MEDS ORDERED: METOCLOPRAMIDE 10 MG INJ IV PRN (10:00)
[2018-09-03] MEDS ORDERED: LABETALOL HCL 20MG INJ IV PRN (10:00)
--- NOTE | 2018-09-03 10:44 | OPR ---
Date/Time of Note Date/Time of Note DATE: 09/03/18 TIME: 10:31 Operative Report Free Text/Dictation DATE OF OPERATION: 09/03/2018 PREOPERATIVE DIAGNOSES: 1. 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 Anterior lumbar interbody fusion via transpsoas approach L3-4 2. Placement of anterior interbody device L3-4 3. Placement of lateral plate instrumentation at L3-4 4. Use of morselized allograft bone 5. Interpretation of neuromonitoring SURGEON: Le Minaya MD ANESTHESIA: General endotracheal. ESTIMATED BLOOD LOSS: <50 cc SURGICAL INDICATION: The patient is a 52 year-old male who presents with an increasing history of back and leg pain. The patient was found to have severe left greater than right sided foraminal stenosis due to adjacent segment degeneration at L3-4 above a prior posterior spinal instrumented fusion at L4- S1. The patient had failed conservative treatments. Risks, benefits and alternatives to a lateral spinal fusion with instrumentation were explained to the patient including but not exclusive of bleeding, infection, visceral injury, nerve injury, nonunion, instrumentation failure, lack of symptom relief, myocardial infarction, stroke, and pulmonary embolism, psoas weakness, lumbar plexus injury and they wished to proceed. DESCRIPTION OF TECHNIQUE: The patient was identified in the preoperative area and taken to the operating room. Rapid induction of general endotracheal anesthesia was performed. Patient was given 900 mg of clindamycin for prophylaxis. The patient was then placed in the right lateral decubitus position (left side up) with an axillary roll placed. Tape was applied across the torso and down the legs for further stabilization of the patient to the table. The right flank was then prepped and draped in the usual sterile manner. Using intraoperative fluoroscopy, the L3-4 disc space was clearly identified. The skin was injected using 0.25% Marcaine with epinephrine. A posterolateral incision was then created using a 10 blade. Further dissection through soft tissue was performed bluntly using Metzenbaum scissors to enter the retroperitoneal space. Manual palpation was used to palpate the peritoneum and the peritoneum was swept in a ventral direction. A direct lateral incision was then created using a 10 blade. Further dissection through soft tissue was again performed bluntly using Metzenbaum scissors, guided manually through the posterolateral incision. The retroperitoneal space was then directly entered. The starting dilator was guided down to the lateral aspect of the psoas muscle, while protecting the peritoneum. Both intraoperative fluoroscopy, as well as neuromonitoring were used to guide the dilator down to the lateral aspect of the disc space, while avoiding the lumbar plexus. A guidewire was then passed through the dilator into the disc space itself. Sequential dilation was performed. A final retractor was applied and stabilized to the table. The retractor was opened gently, just enough to visualize the lateral aspect of the disc space. Fibers of the psoas muscle were directly visualized and gently swept ventrally using a retractor. Again, the surgical field was probe to ensure that no neural elements remained in the surgical field itself. Attention was turned toward the anterior lumbar interbody fusion at L3-4. The lateral anulus was incised using a 15 blade. Disk material was then removed using pituitary rongeurs and curettes. Care was taken to release the contralateral anulus using Sidhu elevators. The endplates were then decorticated using a rasp. Attention was turned toward placement of the anterior interbody device at L3-4. Trial spacers were inserted. A 10x 22 x 50 mm PEEK cage was then selected and filled using Osteocel morcellized allograft bone with stem cells. The cage was inserted into the disc space and malleted into place over slides. AP and lateral views of fluoroscopy confirmed the appropriate placement of the cage. Attention was turned toward placement the lateral plate. A 12 mm decade lateral plate was placed under direct and fluoroscopic visulaization. An awl was used to create the ruling machine feeder holes in the L3 and L4 vertebral bodies. Using fluoroscopy and direct visualization the appropriate sized decade bolts were placed to secure the plate. AP and Lateral Views were taken to verify optimal placement of the lateral plate. The wound was irrigated copiously using normal saline. The fascia was then closed using 0 Vicryl in interrupted fashion. Subcutaneous tissue was closed usi ng 2-0 Vicryl in interrupted fashion. Skin was closed using a running 4-0 Monocryl stitch. The wounds were dressed using Dermabond, sterile gauze and Tegaderm. The patient was returned to the supine position. The patient was extubated immediately postoperatively and taken to the recovery room in stable condition. I was physically present and participated in the entire operation from incision to closure. IMPLANTS: 1. NuVasive PEEK XLIF cage [id number] 10 degree . 2. Osteocel pro morcellized allograft bone with stem cells 3. 12 mm decade plate 4. 35mmX6.6 mm; 40 mmx6.6mm decade screw/ bolt 5. 35mmx5.5mm x2 decade screw/bolt Procedure Date: Sep 03, 2018 Preoperative Diagnosis 1. L3-4 Adjacent segment degeneration above prior L4-S1 instrumented fusion with bilateral foraminal stenosis with L3 radiculopathy Postoperative Diagnosis 1. L3-4 Adjacent segment degeneration above prior L4-S1 instrumented fusion with bilateral foraminal stenosis with L3 radiculopathy Operation/Procedure Performed 1. Anterior lumbar interbody fusion via transpsoas approach L3-4 2. Placement of anterior interbody device L3-4 3. Placement of lateral plate instrumentation at L3-4 4. Use of morselized allograft bone 5. Interpretation of neuromonitoring Surgeon see signature line Pedicurist none Anesthesia Type: general Estimated Blood Loss: 10 - 50 ml's Transfusion none Specimen L3-4 disk Grafts/Implants 1. NuVasive PEEK XLIF cage [id number] 10 degree . 2. Osteocel pro morcellized allograft bone with stem cells 3. 12 mm decade plate 4. 35mmX6.6 mm; 40 mmx6.6mm decade screw/ bolt 5. 35mmx5.5mm x2 decade screw/bolt Complications none Pt Condition Post Procedure: stable Disposition: PACU Procedure Description DESCRIPTION OF TECHNIQUE: The patient was identified in the preoperative area and taken to the operating room. Rapid induction of general endotracheal anesthesia was performed. Patient was given 900 mg of clindamycin for pr ophylaxis. The patient was then placed in the right lateral decubitus position (left side up) with an axillary roll placed. Tape was applied across the torso and down the legs for further stabilization of the patient to the table. The right flank was then prepped and draped in the usual sterile manner. Using intraoperative fluoroscopy, the L3-4 disc space was clearly identified. Th e skin was injected using 0.25% Marcaine with epinephrine. A posterolateral incision was then created using a 10 blade. Further dissection through soft tissue was performed bluntly using Metzenbaum scissors to enter the retroperitoneal space. Manual palpation was used to palpate the peritoneum and the peritoneum was swept in a ventral direction. A direct lateral incision was then created using a 10 blade. Further dissection through soft tissue was again performed bluntly using Metzenbaum scissors, guided manually through the posterolateral incision. The retroperitoneal space was then directly entered. The starting dilator was guided down to the lateral aspect of the psoas muscle, while protecting the peritoneum. Both intraoperative fluoroscopy, as well as ne uromonitoring were used to guide the dilator down to the lateral aspect of the disc space, while avoiding the lumbar plexus. A guidewire was then passed through the dilator into the disc space itself. Sequential dilation was performed. A final retractor was applied and stabilized to the table. The retractor was opened gently, just enough to visualize the lateral aspect of the disc space. Fibers of the psoas muscle were directly visualized and gently swept ventrally using a retractor. Again, the surgical field was probe to ensure that no neural elements remained in the surgical field itself. Attention was turned toward the anterior lumbar interbody fusion at L3-4. The lateral anulus was incised using a 15 blade. Disk material was then removed using pituitary rongeurs and curettes. Care was taken to release the contralateral anulus using Sidhu elevators. The endplates were then decorticated using a rasp. Attention was turned toward placement of the anterior interbody device at L3-4. Trial spacers were inserted. A 10x 22 x 50 mm PEEK cage was then selected and filled using Osteocel morcellized allograft bone with stem cells. The cage was inserted into the disc space and malleted into place over slides. AP and lateral views of fluoroscopy confirmed the appropriate placement of the cage. Attention was turned toward placement the lateral plate. A 12 mm decade lateral plate was placed under direct and fluoroscopic visulaization. An awl was used to create the ruling machine feeder holes in the L3 and L4 vertebral bodies. Using fluoroscopy and direct visualization the appropriate sized decade bolts were placed to secure the plate. AP and Lateral Views were taken to verify optimal placement of the lateral plate. The wound was irrigated copiously using normal saline. The fascia was then closed using 0 Vicryl in interrupted fashion. Subcutaneous tissue was closed using 2-0 Vicryl in interrupted fashion. Skin was closed using a running 4-0 Monocryl stitch. The wounds were dressed using Dermabond, sterile gauze and Tegaderm. The patient was returned to the supine position. The patient was extubated immediately postoperatively and taken to the recovery room in stable condition. I was physically present and participated in the entire operation from incision to closure. LE MINAYA MD Sep 03, 2018 10:41
[2018-09-03] MEDS ORDERED: NALOXONE (0.4 MG/ML) INJ IV PRN (11:00)
[2018-09-03] MEDS ORDERED: PROCHLORPERAZINE 10 MG TAB PO PRN (11:00)
[2018-09-03] MEDS ORDERED: HYDROCODONE/APAP (5/325) TAB PO PRN (11:00)
[2018-09-03] MEDS ORDERED: AL HYDROX/MG HYDROX/SIMETH 30 ML CUP PO PRN (11:00)
[2018-09-03] MEDS ORDERED: NACL 0.9% 3 ML SYG IV SCH (11:00)
[2018-09-03] MEDS: HYDROmorphONE 0.2 MG/ML PCA IV SCH (11:44)
--- NOTE | 2018-09-03 12:19 | CONS ---
DATE OF ADMISSION: 09/03/2018 DATE OF CONSULTATION: 09/03/2018 TYPE OF CONSULTATION: Thank you very much for allowing me to evaluate the above patient who just und erwent L3-L4 decompression. HISTORICAL EVENTS: As you well know, it was about 2 years prior to your having seen him in 03/2018 t chi he underwent L3-L4 decompression for neurogenic claudication and spinal stenosis. It was 8 month s after the latter mentioned procedure that he started noting pain involving his back and accompanyin g radicular lower extremity pain. Trial of epidural injection, physical therapy and anti-inflammator ies provided no relief. Ultimately, he underwent the repeat MRI scan that revealed progression of ad jacent segment disease at L3-L4. Because of his continued pain and following review of imaging the p atient elected to proceed with your recommended surgical intervention. Postoperatively, he notes mod est back pain but without cough, wheezing, shortness of breath, nausea, vomiting, abdominal or chest pain. PAST MEDICAL HISTORY: 1. Includes bronchitis. 2. History of diabetes. 3. Gastroesophageal reflux and upper GI bleeding as noted by endoscopy in 03/2018. 4. History of gout. 5. Hypertension. 6. Hyperlipidemia. 7. Neuropathy. 8. Anterior cervical diskectomy 2000. MEDICATIONS: Doses to be confirmed include: 1. Simvastatin. 2. Amlodipine. 3. Duloxetine. 4. Tamsulosin. 5. Metoprolol. 6. Omeprazole. 7. Lantus b.i.d. 8. Metformin. 9. Januvia. 10. Oxycodone. 11. Diazepam. 12. Flexeril. 13. Metoclopramide. FAMILY HISTORY: To be reviewed later. 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 PHYSICAL EXAMINATION: GENERAL: Accord overweight male in no acute distress. VITAL SIGNS: BP 110/72, pulse 70, respirations were 18. He was afebrile. EYES: Extraocular muscles were full. NOSE, MOUTH, AND THROAT: Normal. NECK: Supple. There was no jugular venous distention, thyroid enlargement or adenopathy. LUNGS: Clear. HEART: Rhythm regular, no murmur. No third or fourth sound. ABDOMEN: Nontender. Liver and spleen were not palpable. No mass or tenderness were noted. EXTREMITIES: No edema. Calves nontender. Pulses 2+. NEUROLOGIC: No lateralizing motor weakness. IMPRESSION: 1. Stable postop lumbar back surgery. 2. History of hypertension. Blood pressure meds will be resumed. 3. History of diabetes, long-acting and short-acting insulin will be ordered. 4. Mood disorder. Antidepressant will be continued. 5. We will follow daily for signs and symptoms of thromboembolic disease. Dictated By: DIANA PAZ MD MR/NTS Conf#: [id number] DID#: [id number] CC: LE MINAYA MD;*EndCC*
[2018-09-03] MEDS: CEFAZOLIN 1 GM/50 ML (PMX) 50 ML IVPB SCH ×2 (12:27→17:56)
--- NOTE | 2018-09-03 13:19 | PAC ---
Date/Time of Note Date/Time of Note DATE: 09/03/18 TIME: 13:18 Post-Anesthesia Notes Post-Anesthesia Note Last documented vital signs Vital Signs Date Temp Pulse Resp B/P (MAP) Pulse Ox O2 O2 Flow FiO2 Time Delivery Rate 09/03/18 98.7 12:14 09/03/18 10 106/69 92 Nasal 3.0 12:05 (81) Cannula 09/03/18 92 11:05 Activity: WNL Respiratory function: WNL Cardiovascular function: WNL Mental status: Baseline Pain reasonably controlled: Yes Hydration appropriate: Yes Nausea/Vomiting absent: Yes GABRIELA TURCIOS MD Sep 03, 2018 13:19
[2018-09-03] MEDS: SOD CHLORIDE 0.45% 1,000 ML IV SCH ×2 (13:40→20:44)
[2018-09-03] MEDS ORDERED: GLUCOSE GEL 15 GRAM TUBE PO PRN ×2 (14:30)
[2018-09-03] MEDS ORDERED: DEXTROSE 50% 50 ML SYRINGE IV PRN ×2 (14:30)
[2018-09-03] MEDS ORDERED: GLUCOSE GEL 15 GRAM TUBE BUCCAL PRN (14:30)
[2018-09-03] MEDS ORDERED: GLUCAGON 1 MG INJ IM PRN (14:30)
[2018-09-03] MEDS: METHOCARBAMOL 500 MG TAB PO PRN (15:21)
[2018-09-03] MEDS: INSULIN ASPART [NOVOLOG] 3 ML PEN SC SCH (17:30)
[2018-09-03] MEDS: METOCLOPRAMIDE 10 MG TAB PO SCH ×2 (17:56→21:34)
[2018-09-03] MEDS: SUCRALFATE 1 GM TAB PO SCH ×2 (17:56→21:34)
[2018-09-03] MEDS ORDERED: INSULIN GLARGINE [LANTus] (100 UNITS/ML) SYG SC SCH (20:00)
[2018-09-03] MEDS: traZODone 50 MG TAB PO SCH (21:34)
[2018-09-03] MEDS: RANITIDINE 150 MG TAB PO SCH (21:34)
[2018-09-04] MEDS: DIAZEPAM 5 MG TAB PO SCH ×3 (00:16→20:11)
[2018-09-04] MEDS: CEFAZOLIN 1 GM/50 ML (PMX) 50 ML IVPB SCH ×2 (00:18→05:35)
[2018-09-04] MEDS: SOD CHLORIDE 0.45% 1,000 ML IV SCH (00:20)
[2018-09-04 02:00] VITALS: BP_SYST 117; PULSE 101; RESP 17
[2018-09-04] MEDS: ACCU-CHEK XX SCH (02:00)
[2018-09-04 02:05] VITALS: BP 117/66
[2018-09-04] MEDS: METHOCARBAMOL 500 MG TAB PO PRN ×2 (02:26→11:11)
[2018-09-04] MEDS: ACETAMINOPHEN 325 MG TAB PO PRN ×2 (04:35)
[2018-09-04] MEDS: HYDROmorphONE 0.2 MG/ML PCA IV SCH (06:47)
[2018-09-04 07:39] VITALS: BP 127/68; PULSE 97; RESP 20
--- NOTE | 2018-09-04 08:35 | CONS ---
Assessment/Plan Assessment/Plan Assessment/Plan (Daily) 1. Post op lumbar back surgery, doing well 2. DM, cho control is acceptable, lantus dose dec 3. BP is well controlled 4. Renal fx is stable Consultation Date/Type/Reason Admit Date/Time Sep 03, 2018 at 05:45 Initial Consult Date Date/Time of Note DATE: 09/04/18 TIME: 08:34 Detailed Summary Respiratory: No cough, No shortness of breath Cardiovascular: No chest pain, No lightheadedness Gastrointestinal: no complaints Genitourinary: other (maurer in place) Musculoskeletal: back pain (moderate without radic leg pain) Exam/Review of Systems Exam Vitals Vital Signs Date Temp Pulse Resp B/P (MAP) Pulse Ox O2 O2 Flow FiO2 Time Delivery Rate 09/04/18 98.6 97 20 127/68 91 Nasal 07:39 (87) Cannula 09/03/18 3.0 20:10 Intake and Output 09/03/18 09/03/18 09/04/18 1515:00 23:00 07:00 IntakeIntake Total 2250 ml 870 ml 1500 ml OutputOutput Total 185 ml BalanceBalance 2065 ml 870 ml 1500 ml Neck: No jvd Respiratory: clear to auscultation Cardiovascular: regular rate and rhythm Gastrointestinal: nl liver, spleen Extremities: No edema, No pitting pedal edema, No tenderness Results Result Diagram: 09/04/18 0438 09/04/18 0438 Results 24hrs Laboratory Tests Test 09/03/18 11:12 09/03/18 13:30 09/03/18 17:49 09/03/18 21:26 Bedside Glucose 157 144 138 113 Test 09/04/18 04:38 09/04/18 08:00 Hemoglobin 13.7 L Hematocrit 43.3 Sodium Level 141 Potassium Level 4.5 Chloride Level 101 Carbon Dioxide 34 H Level Anion Gap 6 Blood Urea 12 Nitrogen Creatinine 1.13 Est Glomerular > 60 Filtrat Rate mL/min Glucose Level 195 Calcium Level 8.6 Phosphorus Level 4.4 Magnesium Level 1.8 Lab Scanned Report REFERENCE LAB Medications Medication Current Medications Sodium Chloride 1,000 ml @ 100 mls/hr Q10H IV Last administered on 09/04/18at 00:20; Admin Dose 100 MLS/HR; Start 09/03/18 at 10:44 Acetaminophen/ Hydrocodone Bitart ([place] (5/325)) 1 tab Q4H PRN PO .PAIN 1-5; Start 09/03/18 at 11:00 Acetaminophen/ Hydrocodone Bitart ([place] (5/325)) 2 tab Q4H PRN PO .PAIN 6-10; Start 09/03/18 at 11:00 Prochlorperazine (Compazine) 10 mg Q4H PRN PO NAUSEA/VOMITING; Start 09/03/18 at 11:00 Ondansetron HCl (Zofran Inj) 4 mg Q6H PRN IV NAUSEA/VOMITING; Start 09/03/18 at 11:00 Al Hydrox/Mg Hydrox/Simethicone (Mag-Al Plus) 15 ml Q4H PRN PO .CONSTIPATION; Start 09/03/18 at 11:00 Docusate Sodium (Colace) 100 mg BID PO ; Start 09/04/18 at 09:00 Acetaminophen (Tylenol Tab) 650 mg Q4H PRN PO TEMP GREATER THAN 101F OR CORNEJO Last administered on 09/04/18at 04:35; Admin Dose 650 MG; Start 09/03/18 at 11:00 IV Flush (NS 3 ml) 3 ml PER PROTOCOL IV ; Start 09/03/18 at 11:00 Hydromorphone HCl (Dilaudid PR[employer]ED [employer]ARDS LAMINATOR) Q4PCA IV Last administered on 09/04/18at 06:47; Admin Dose 6 MG; Start 09/03/18 at 11:00 Naloxone HCl (Narcan) 0.2 mg Q2M PRN IV RR 8 BREATHS/MIN OR LESS; Start 09/03/18 at 11:00 Allopurinol (Zyloprim) 300 mg DAILY PO ; Start 09/04/18 at 09:00 Diazepam (Valium) 10 mg QHS PO Last administered on 09/04/18at 00:28; Admin Dose 5 MG; Start 09/03/18 at 21:00 Duloxetine HCl (Cymbalta) 40 mg DAILY PO ; Start 09/04/18 at 09:00 Metoclopramide HCl (Reglan) 10 mg WITH MEALS BEDTIME PO Last administered on 09/03/18at 21:34; Admin Dose 10 MG; Start 09/03/18 at 18:00 Metoprolol Succinate (Toprol Xl) 50 mg DAILY PO ; Start 09/04/18 at 09:00 Pantoprazole (Protonix Tab) 40 mg DAILY PO ; Start 09/04/18 at 09:00 Sucralfate (Carafate) 1 gm AC MEALS AND BEDTIME PO Last administered on 09/03/18at 21:34; Admin Dose 1 GM; Start 09/03/18 at 17:30 Tamsulosin HCl (Flomax) 0.4 mg DAILY PO ; Start 09/04/18 at 09:00 Trazodone HCl (Desyrel) 50 mg QHS PO Last administered on 09/03/18at 21:34; Admin Dose 50 MG; Start 09/03/18 at 21:00 Insulin Glargine (Lantus) 20 units DAILY@2000 SC Last administered on 09/03/18at 21:39; Admin Dose 20 UNITS; Start 09/03/18 at 20:00 Diagnostic Test (Pha) (Accu-Chek) 1 ea 02 XX ; Start 09/04/18 at 02:00 Insulin Aspart (Novolog Insulin Pen) NOVOLOG *MILD* ALGORITHM AC MEALS SC ; Start 09/03/18 at 17:30 Ranitidine HCl (Zantac) 150 mg HS PO Last administered on 09/03/18at 21:34; Admin Dose 150 MG; Start 09/03/18 at 21:00 Miscellaneous Information 1 ea NOTE XX ; Start 09/03/18 at 14:30 Glucose (Glutose) 15 gm Q15M PRN PO DECREASED GLUCOSE; Start 09/03/18 at 14:30 Glucose (Glutose) 22.5 gm Q15M PRN PO DECREASED GLUCOSE; Start 09/03/18 at 14:30 Dextrose (D50w Syringe) 25 ml Q15M PRN IV DECREASED GLUCOSE; Start 09/03/18 at 14:30 Dextrose (D50w Syringe) 50 ml Q15M PRN IV DECREASED GLUCOSE; Start 09/03/18 at 14:30 Glucagon (Glucagen) 1 mg Q15M PRN IM DECREASED GLUCOSE; Start 09/03/18 at 14:30 Glucose (Glutose) 15 gm Q15M PRN BUCCAL DECREASED GLUCOSE; Start 09/03/18 at 14:30 Linagliptin (Tradjenta) 5 mg DAILY PO ; Start 09/04/18 at 09:00 Amlodipine Besylate (Norvasc) 10 mg DAILY PO ; Start 09/04/18 at 09:00 Benazepril HCl (Lotensin) 20 mg DAILY PO ; Start 09/04/18 at 09:00 EZETIMIBE (Zetia) 10 mg DAILY PO ; Start 09/04/18 at 09:00 Atorvastatin Calcium (Lipitor) 20 mg DAILY PO ; Start 09/04/18 at 09:00 Methocarbamol (Robaxin) 500 mg TID PRN PO MUSCLE SPASMS Last administered on 09/04/18at 02:26; Admin Dose 500 MG; Start 09/03/18 at 14:45 Quinine Sulfate (Quinine Sulfate) 324 mg QHS PO ; Start 09/03/18 at 21:00; Status UNV Miscellaneous Information (*Order Clarification Bulletin) MEDICATION REQUIRES CLARIFICATI... Q8H XX ; Start 09/03/18 at 16:00 DIANA PAZ MD Sep 04, 2018 08:35
[2018-09-04] MEDS: EZETIMIBE 10 MG TAB PO SCH (08:41)
[2018-09-04] MEDS: METOPROLOL (XL) 50 MG TAB PO SCH (08:42)
[2018-09-04] MEDS: DULOXETINE 20 MG CAP DR PO SCH (08:43)
[2018-09-04] MEDS: SUCRALFATE 1 GM TAB PO SCH ×4 (08:43→20:11)
[2018-09-04] MEDS: METOCLOPRAMIDE 10 MG TAB PO SCH ×4 (08:43→20:10)
[2018-09-04] MEDS: INSULIN ASPART [NOVOLOG] 3 ML PEN SC SCH ×3 (08:44→17:43)
[2018-09-04] MEDS: BENAZEPRIL 20 MG TAB PO SCH (08:45)
[2018-09-04] MEDS: DOCUSATE SODIUM 100 MG CAP PO SCH ×2 (08:45→20:10)
[2018-09-04] MEDS: ATORVASTATIN 20 MG TAB PO SCH (08:46)
[2018-09-04] MEDS: LINAGLIPTIN 5 MG TABLET PO SCH (08:46)
[2018-09-04] MEDS: AMLODIPINE 10 MG TAB PO SCH (08:46)
[2018-09-04 08:47] VITALS: BP 114/62; PULSE 94; RESP 12
[2018-09-04] MEDS: TAMSULOSIN (SR) 0.4 MG CAP PO SCH (08:47)
[2018-09-04] MEDS: PANTOPRAZOLE (EC) 40 MG TAB PO SCH (08:48)
[2018-09-04] MEDS: ALLOPURINOL 300 MG TAB PO SCH (08:49)
[2018-09-04] MEDS ORDERED: NON-FORMULARY/PATIENT OWN MED (Sitagliptin* (Januvia*) 100 MG) PO SCH (09:00)
[2018-09-04] MEDS ORDERED: NON-FORMULARY/PATIENT OWN MED (Amlodipine Besylate/Benazepril (Amlodipine-Benazepril 10-20 PO SCH (09:00)
[2018-09-04] MEDS ORDERED: NON-FORMULARY/PATIENT OWN MED (Ezetimibe/Simvastatin (Vytorin 10-40 mg Tablet) 1 EACH) PO SCH (09:00)
[2018-09-04] MEDS: SOD CHLORIDE 0.9% 1,000 ML IV SCH ×2 (11:13→20:16)
--- NOTE | 2018-09-04 12:56 | CONS ---
Consultation Date/Type/Reason Admit Date/Time Sep 03, 2018 at 05:45 Initial Consult Date Date/Time of Note DATE: 09/04/18 TIME: 12:53 24 HR Interval Summary Free Text/Dictation S: 52 yo M POD#1 s/p L3-4 lateral interbody fusion w/ lateral plate. Doing well. No acute events over night. Pain controlled w/ [employer]. Passing gas. Got OOB w/ PT today. Tolerating diet. Escobar cath was removed this am. O: Vital Signs Date Temp Pulse Resp B/P (MAP) Pulse Ox O2 O2 Flow FiO2 Time Delivery Rate 09/04/18 Nasal 3.0 10:56 Cannula 09/04/18 12 08:55 09/04/18 94 114/62 91 08:47 (79) 09/04/18 98.6 07:39 Spine: 4/5 b/l HF/KE/TA/GS, +SILT L3-S1, dressing C/D/I A/P:52 yo M POD#1 s/p L3-4 lateral interbody fusion w/ lateral plate. 1. D/C [employer] 2. start PO [place], Dilaudid for breakthrough pain 3. OOB w/ PT 4. Dispo planning for Mon or based on pain and PT recs 5. Appreciate med recs Exam/Review of Systems Exam Vitals Vital Signs Date Temp Pulse Resp B/P (MAP) Pulse Ox O2 O2 Flow FiO2 Time Delivery Rate 09/04/18 Nasal 3.0 10:56 Cannula 09/04/18 12 08:55 09/04/18 94 114/62 91 08:47 (79) 09/04/18 98.6 07:39 Intake and Output 09/03/18 09/03/18 09/04/18 1515:00 23:00 07:00 IntakeIntake Total 2250 ml 870 ml 1500 ml OutputOutput Total 185 ml BalanceBalance 2065 ml 870 ml 1500 ml Results Result Diagram: 09/04/18 0438 09/04/18 0438 Results 24hrs Laboratory Tests Test 09/03/18 13:30 09/03/18 17:49 09/03/18 21:26 09/04/18 04:38 Bedside Glucose 144 138 113 Hemoglobin 13.7 L Hematocrit 43.3 Sodium Level 141 Potassium Level 4.5 Chloride Level 101 Carbon Dioxide 34 H Level Anion Gap 6 Blood Urea 12 Nitrogen Creatinine 1.13 Est Glomerular > 60 Filtrat Rate mL/min Glucose Level 195 Calcium Level 8.6 Phosphorus Level 4.4 Magnesium Level 1.8 Test 09/04/18 08:00 09/04/18 08:38 Lab Scanned Report REFERENCE LAB Bedside Glucose 156 Medications Medication Current Medications Acetaminophen/ Hydrocodone Bitart ([place] (5/325)) 1 tab Q4H PRN PO .PAIN 1-5; Start 09/03/18 at 11:00 Acetaminophen/ Hydrocodone Bitart ([place] (5/325)) 2 tab Q4H PRN PO .PAIN 6-10; Start 09/03/18 at 11:00 Prochlorperazine (Compazine) 10 mg Q4H PRN PO NAUSEA/VOMITING; Start 09/03/18 at 11:00 Ondansetron HCl (Zofran Inj) 4 mg Q6H PRN IV NAUSEA/VOMITING; Start 09/03/18 at 11:00 Al Hydrox/Mg Hydrox/Simethicone (Mag-Al Plus) 15 ml Q4H PRN PO .CONSTIPATION; Start 09/03/18 at 11:00 Docusate Sodium (Colace) 100 mg BID PO Last administered on 09/04/18at 08:45; Admin Dose 100 MG; Start 09/04/18 at 09:00 Acetaminophen (Tylenol Tab) 650 mg Q4H PRN PO TEMP GREATER THAN 101F OR CORNEJO Last administered on 09/04/18at 04:35; Admin Dose 650 MG; Start 09/03/18 at 11:00 IV Flush (NS 3 ml) 3 ml PER PROTOCOL IV ; Start 09/03/18 at 11:00 Hydromorphone HCl (Dilaudid [employer]) Q4PCA IV Last administered on 09/04/18at 06:47; Admin Dose 6 MG; Start 09/03/18 at 11:00 Naloxone HCl (Narcan) 0.2 mg Q2M PRN IV RR 8 BREATHS/MIN OR LESS; Start 09/03/18 at 11:00 Allopurinol (Zyloprim) 300 mg DAILY PO Last administered on 09/04/18at 08:49; Admin Dose 300 MG; Start 09/04/18 at 09:00 Diazepam (Valium) 10 mg QHS PO Last administered on 09/04/18 00:28; Admin Dose 5 MG; Start 09/03/18 at 21:00 Duloxetine HCl (Cymbalta) 40 mg DAILY PO Last administered on 09/04/18 08:43; Admin Dose 40 MG; Start 09/04/18 at 09:00 Metoclopramide HCl (Reglan) 10 mg WITH MEALS BEDTIME PO Last administered on 09/04/18 11:12; Admin Dose 10 MG; Start 09/03/18 at 18:00 Metoprolol Succinate (Toprol Xl) 50 mg DAILY PO Last administered on 09/04/18 08:42; Admin Dose 50 MG; Start 09/04/18 at 09:00 Pantoprazole (Protonix Tab) 40 mg DAILY PO Last administered on 09/04/18 08:48; Admin Dose 40 MG; Start 09/04/18 at 09:00 Sucralfate (Carafate) 1 gm AC MEALS AND BEDTIME PO Last administered on 09/04/18 11:12; Admin Dose 1 GM; Start 09/03/18 at 17:30 Tamsulosin HCl (Flomax) 0.4 mg DAILY PO Last administered on 09/04/18 08:47; Admin Dose 0.4 MG; Start 09/04/18 at 09:00 Trazodone HCl (Desyrel) 50 mg QHS PO Last administered on 09/03/18 21:34; Admin Dose 50 MG; Start 09/03/18 at 21:00 Diagnostic Test (Pha) (Accu-Chek) 1 ea 02 XX ; Start 09/04/18 at 02:00 Insulin Aspart (Novolog Insulin Pen) NOVOLOG *MILD* ALGORITHM AC MEALS SC Last administered on 09/04/18 08:44; Admin Dose 1 UNIT; Start 09/03/18 at 17:30 Ranitidine HCl (Zantac) 150 mg HS PO Last administered on 09/03/18 21:34; Admin Dose 150 MG; Start 09/03/18 at 21:00 Miscellaneous Information 1 ea NOTE XX ; Start 09/03/18 at 14:30 Glucose (Glutose) 15 gm Q15M PRN PO DECREASED GLUCOSE; Start 09/03/18 at 14:30 Glucose (Glutose) 22.5 gm Q15M PRN PO DECREASED GLUCOSE; Start 09/03/18 at 14:30 Dextrose (D50w Syringe) 25 ml Q15M PRN IV DECREASED GLUCOSE; Start 09/03/18 at 14:30 Dextrose (D50w Syringe) 50 ml Q15M PRN IV DECREASED GLUCOSE; Start 09/03/18 at 14:30 Glucagon (Glucagen) 1 mg Q15M PRN IM DECREASED GLUCOSE; Start 09/03/18 at 14:30 Glucose (Glutose) 15 gm Q15M PRN BUCCAL DECREASED GLUCOSE; Start 09/03/18 at 14:30 Linagliptin (Tradjenta) 5 mg DAILY PO Last administered on 09/04/18at 08:46; Admin Dose 5 MG; Start 09/04/18 at 09:00 Amlodipine Besylate (Norvasc) 10 mg DAILY PO Last administered on 09/04/18at 08:46; Admin Dose 10 MG; Start 09/04/18 at 09:00 Benazepril HCl (Lotensin) 20 mg DAILY PO Last administered on 09/04/18at 08:45; Admin Dose 20 MG; Start 09/04/18 at 09:00 EZETIMIBE (Zetia) 10 mg DAILY PO Last administered on 09/04/18at 08:41; Admin Dose 10 MG; Start 09/04/18 at 09:00 Atorvastatin Calcium (Lipitor) 20 mg DAILY PO Last administered on 09/04/18at 08:46; Admin Dose 20 MG; Start 09/04/18 at 09:00 Methocarbamol (Robaxin) 500 mg TID PRN PO MUSCLE SPASMS Last administered on 09/04/18at 11:11; Admin Dose 500 MG; Start 09/03/18 at 14:45 Quinine Sulfate (Quinine Sulfate) 324 mg QHS PO ; Start 09/03/18 at 21:00; Status UNV Miscellaneous Information (*Order Clarification Bulletin) MEDICATION REQUIRES CLARIFICATI... Q8H XX ; Start 09/03/18 at 16:00 Insulin Glargine (Lantus) 16 units HS ONCE SC ; Start 09/04/18 at 21:00; Stop 09/04/18 at 21:01 Sodium Chloride 1,000 ml @ 70 mls/hr [id number] IV Last administered on 09/04/18at 11:13; Admin Dose 70 MLS/HR; Start 09/04/18 at 09:00 LE MINAYA MD Sep 04, 2018 12:56
[2018-09-04] MEDS ORDERED: HYDROmorphONE 0.5 MG/0.5 ML SYG IV PRN (13:00)
[2018-09-04] MEDS: HYDROCODONE/APAP (5/325) TAB PO PRN ×2 (13:09→18:22)
[2018-09-04 14:00] VITALS: BP 116/66; PULSE 98; RESP 18
[2018-09-04 20:05] VITALS: BP 123/72; PULSE 106; RESP 20
[2018-09-04] MEDS: RANITIDINE 150 MG TAB PO SCH (20:11)
[2018-09-04] MEDS: traZODone 50 MG TAB PO SCH (20:11)
[2018-09-04] MEDS ORDERED: INSULIN GLARGINE [LANTus] (100 UNITS/ML) SYG SC ONE (21:00)
[2018-09-05] VITALS (8 sets, daily range): BP systolic 119–142; BP diastolic 66–83; PULSE 89–110; RESP 18–20
[2018-09-05] MEDS: ACCU-CHEK XX SCH (02:31)
[2018-09-05] MEDS: ACETAMINOPHEN 325 MG TAB PO PRN ×2 (03:42→15:41)
[2018-09-05] MEDS ORDERED: VANCOMYCIN IV PER PHARMACY XX SCH (06:00)
[2018-09-05] MEDS ORDERED: PIPER-TAZO 3.375 GM IV (PMX) 100 ML IVPB SCH (06:00)
[2018-09-05] MEDS: SUCRALFATE 1 GM TAB PO SCH ×4 (07:00→20:33)
[2018-09-05] MEDS: ALBUTEROL/IPRATROPIUM (NEB) 3 ML AMP HHN SCH ×2 (07:22→14:31)
[2018-09-05] MEDS ORDERED: VANCOMYCIN HCL 2 GM in SOD CHLORIDE 0.9% 500 ML IVPB SCH ×2 (07:30→20:00)
[2018-09-05] MEDS: METOCLOPRAMIDE 10 MG TAB PO SCH ×4 (07:36→20:34)
[2018-09-05] MEDS: INSULIN ASPART [NOVOLOG] 3 ML PEN SC SCH ×4 (07:38→20:51)
[2018-09-05] MEDS ORDERED: IPRATROPIUM (NEB) 0.5 MG/2.5 ML AMP HHN SCH (08:00)
[2018-09-05] MEDS: EZETIMIBE 10 MG TAB PO SCH (08:10)
[2018-09-05] MEDS: LINAGLIPTIN 5 MG TABLET PO SCH (08:11)
[2018-09-05] MEDS: ATORVASTATIN 20 MG TAB PO SCH (08:11)
[2018-09-05] MEDS: METOPROLOL (XL) 50 MG TAB PO SCH (08:11)
[2018-09-05] MEDS: DOCUSATE SODIUM 100 MG CAP PO SCH ×2 (08:11→20:35)
[2018-09-05] MEDS: BENAZEPRIL 20 MG TAB PO SCH (08:12)
[2018-09-05] MEDS: TAMSULOSIN (SR) 0.4 MG CAP PO SCH (08:12)
[2018-09-05] MEDS: PANTOPRAZOLE (EC) 40 MG TAB PO SCH (08:12)
[2018-09-05] MEDS: ALLOPURINOL 300 MG TAB PO SCH (08:12)
[2018-09-05] MEDS: DULOXETINE 20 MG CAP DR PO SCH (08:12)
[2018-09-05] MEDS: AMLODIPINE 10 MG TAB PO SCH (08:12)
--- NOTE | 2018-09-05 08:41 | CONS ---
Assessment/Plan Assessment/Plan Hospital Course (Demo Recall) 1) post op fever the possible sources for infection would include the lung and urine pt has atelectasis noted on CXR and he has crackles at his lung bases but he denies respiratory problems he has urinary retention which can predispose him to infection also his surgical site looks good and doubt this is a source for his fever I have ordered procalcitonin and u/a and urine cx blood cx were done if procalcitonin and u/a are benign looking then will hold off on antibiotics but if abnormal then will start antibiotics WBC this a.m. is good, pt had no shaking chill, he has no localizing signs are present, and looks very stable, so until more info is gathered will hold off on antibiotics 2) s/p lumbar fusion with plates installed no sign of local infection at surgical site and too soon for abscess to appear 3) urinary retention get stat u/a and urine cx, straight cath if necessary 4) lung atelectasis re-start incentive spirometer get procalcitonin now and in a.m. 5) DM 6) hx of gout no current symptoms 7) migraines consider imitrex for pt Consultation Date/Type/Reason Admit Date/Time Sep 03, 2018 at 05:45 Date of Consultation: Sep 05, 2018 Type of Consult ID Date/Time of Note DATE: 09/05/18 TIME: 08:30 Hx of Present Illness pt was admitted on 09/03 for lumbar fusion surgery due to failure of conservative measures to control his back pain pt was feeling fine [employer] no F, C, NS [employer] He developed a fever at 3a.m. He states he feels fine other than a migraine CORNEJO to L frontal area (no aura) he denies coryza, cough, SOB, sore throat, dysphagia, CP He has an achey back he was unable to urinate since the maurer was removed yesterday and was catheterized this a.m. with 700cc of urine no rashes, joint pains, N, V, D no stools since the surgery Past Medical History HTN, DM, migraines, gout, GI bleed, spinal stenosis Home Meds Reported Medications Sucralfate* (Carafate*) 1 Gm Tab, 1 GM PO AC MEALS AND BEDTIME, TAB 09/03/18 Pantoprazole* (Protonix*) 40 Mg Tablet.dr, 40 MG PO DAILY, TAB 09/03/18 Trazodone Hcl* (Trazodone Hcl*) 50 Mg Tablet, 50 MG PO QHS, #30 TAB 09/03/18 Insulin Glargine* (Lantus*) 100 Unit/Ml Soln, 0 SC BID, #1 VIAL SLIDING SCALE 09/03/18 Metoclopramide Hcl* (Metoclopramide Hcl*) 10 Mg Tablet, 10 MG PO WITH MEALS BEDTIME, TAB 09/03/18 Allopurinol* (Allopurinol*) 300 Mg Tablet, 300 MG PO DAILY, TAB 09/03/18 Sitagliptin* (Januvia*) 100 Mg Tablet, 100 MG PO DAILY, #30 TAB 09/03/18 Quinine Sulfate (Quinine Sulfate) 324 Mg Cap, 324 MG PO QHS, CAP 09/03/18 Diazepam* (Diazepam*) 10 Mg Tablet, 10 MG PO QHS, TAB 09/03/18 Ezetimibe/Simvastatin (Vytorin 10-40 mg Tablet) 1 Each Tablet, 1 EACH PO QAM, TAB 09/03/18 Duloxetine Hcl* (Duloxetine Hcl*) 20 Mg Capsule.dr, 40 MG PO DAILY, #30 CAP 09/03/18 Amlodipine Besylate/Benazepril (Amlodipine-Benazepril 10-20 mg) 1 Each Capsule, 1 EACH PO DAILY, CAP 09/03/18 Tamsulosin Hcl* (Flomax*) 0.4 Mg Cap.er.24h, 0.4 MG PO DAILY, CAP 09/03/18 Metoprolol Succinate* (Toprol XL*) 50 Mg Tab.er.24h, 50 MG PO DAILY, #30 TAB 09/03/18 Omeprazole* (Omeprazole*) 20 Mg Capsule.dr, 20 MG PO DAILY, #30 CAP 09/03/18 Discontinued Reported Medications Quinine Sulfate (Quinine Sulfate) 324 Mg Cap, 324 MG PO QHS, CAP 07/11/16 Eluxadoline (Viberzi) 75 Mg Tablet, 75 MG PO BID PRN for DIARRHEA, TAB 07/11/16 Sumatriptan Succinate* (Sumatriptan Succinate*) 100 Mg Tablet, 100 MG PO BID PRN for MIGRAINE HEADACHE, TAB May repeat after 2 hours if needed; MAX 200 mg/24 hours 07/11/16 Insulin Glargine* (Lantus*) 100 Unit/Ml Soln, 60-70 UNIT SC QPM, #1 VIAL 07/11/16 Metformin Hcl* (Metformin Hcl*) 1,000 Mg Tablet, 1000 MG PO WITH BREAKFAST DINNE, #30 TAB 07/11/16 Metoclopramide* (Reglan*) 10 Mg Tablet, 10 MG PO AC MEALS, TAB 07/11/16 Allopurinol* (Allopurinol*) 300 Mg Tablet, 300 MG PO BID, TAB 07/11/16 Sitagliptin* (Januvia*) 100 Mg Tablet, 100 MG PO DAILY, #30 TAB 07/11/16 Oxycodone Hcl* (IR) (Oxycodone Hcl*) 5 Mg Capsule, 5 MG PO TID PRN for PAIN, CAP 07/11/16 Diazepam* (Diazepam*) 10 Mg Tablet, 10 MG PO QHS, TAB 07/11/16 Cyclobenzaprine Hcl* (Cyclobenzaprine Hcl*) 10 Mg Tablet, 10 MG PO QID PRN for MUSCLE SPASMS, #60 TAB 07/11/16 Simvastatin* (Zocor*) 40 Mg Tablet, 40 MG PO QHS, #30 TAB 07/11/16 Duloxetine Hcl* (Duloxetine Hcl*) 60 Mg Capsule.dr, 60 MG PO DAILY, #30 CAP 07/11/16 Amlodipine Besylate/Benazepril (Amlodipine-Benazepril 5-20 mg) 1 Each Capsule, 1 EACH PO DAILY, CAP 07/11/16 Tamsulosin Hcl* (Tamsulosin Hcl*) 0.4 Mg Cap.er.24h, 0.4 MG PO HS, CAP 07/11/16 Metoprolol Succinate* (Toprol XL*) 100 Mg Tab.sr.24h, 100 MG PO DAILY, #30 TAB 07/11/16 Omeprazole* (Omeprazole*) 20 Mg Capsule.dr, 20 MG PO BID, #60 CAP 07/11/16 Medications Current Medications Acetaminophen/ Hydrocodone Bitart ([place] (5/325)) 1 tab Q4H PRN PO .PAIN 1-5; Start 09/03/18 at 11:00 Acetaminophen/ Hydrocodone Bitart ([place] (5/325)) 2 tab Q4H PRN PO .PAIN 6-10 Last administered on 09/04/18 18:22; Admin Dose 2 TAB; Start 09/03/18 at 11:00 Prochlorperazine (Compazine) 10 mg Q4H PRN PO NAUSEA/VOMITING; Start 09/03/18 at 11:00 Ondansetron HCl (Zofran Inj) 4 mg Q6H PRN IV NAUSEA/VOMITING; Start 09/03/18 at 11:00 Al Hydrox/Mg Hydrox/Simethicone (Mag-Al Plus) 15 ml Q4H PRN PO .CONSTIPATION; Start 09/03/18 at 11:00 Docusate Sodium (Colace) 100 mg BID PO Last administered on 09/05/18 08:11; Admin Dose 100 MG; Start 09/04/18 at 09:00 Acetaminophen (Tylenol Tab) 650 mg Q4H PRN PO TEMP GREATER THAN 101F OR CORNEJO Last administered on 09/05/18 03:42; Admin Dose 650 MG; Start 09/03/18 at 11:00 IV Flush (NS 3 ml) 3 ml PER PROTOCOL IV ; Start 09/03/18 at 11:00 Naloxone HCl (Narcan) 0.2 mg Q2M PRN IV RR 8 BREATHS/MIN OR LESS; Start 09/03/18 at 11:00 Allopurinol (Zyloprim) 300 mg DAILY PO Last administered on 09/05/18 08:12; Admin Dose 300 MG; Start 09/04/18 at 09:00 Diazepam (Valium) 10 mg QHS PO Last administered on 09/04/18 20:11; Admin Dose 10 MG; Start 09/03/18 at 21:00 Duloxetine HCl (Cymbalta) 40 mg DAILY PO Last administered on 09/05/18 08:12; Admin Dose 40 MG; Start 09/04/18 at 09:00 Metoclopramide HCl (Reglan) 10 mg WITH MEALS BEDTIME PO Last administered on 09/05/18 07:36; Admin Dose 10 MG; Start 09/03/18 at 18:00 Metoprolol Succinate (Toprol Xl) 50 mg DAILY PO Last administered on 09/05/18 08:11; Admin Dose 50 MG; Start 09/04/18 at 09:00 Pantoprazole (Protonix Tab) 40 mg DAILY PO Last administered on 7/17/19at 08:12; Admin Dose 40 MG; Start 09/04/18 at 09:00 Sucralfate (Carafate) 1 gm AC MEALS AND BEDTIME PO Last administered on 09/04/18at 20:11; Admin Dose 1 GM; Start 09/03/18 at 17:30 Tamsulosin HCl (Flomax) 0.4 mg DAILY PO Last administered on 09/05/18at 08:12; Admin Dose 0.4 MG; Start 09/04/18 at 09:00 Trazodone HCl (Desyrel) 50 mg QHS PO Last administered on 09/04/18at 20:11; Admin Dose 50 MG; Start 09/03/18 at 21:00 Diagnostic Test (Pha) (Accu-Chek) 1 ea 02 XX Last administered on 09/05/18at 02:31; Admin Dose 1 EA; Start 09/04/18 at 02:00 Insulin Aspart (Novolog Insulin Pen) NOVOLOG *MILD* ALGORITHM AC MEALS SC Last administered on 09/05/18at 07:38; Admin Dose 3 UNIT; Start 09/03/18 at 17:30 Ranitidine HCl (Zantac) 150 mg HS PO Last administered on 09/04/18at 20:11; Admin Dose 150 MG; Start 09/03/18 at 21:00 Miscellaneous Information 1 ea NOTE XX ; Start 09/03/18 at 14:30 Glucose (Glutose) 15 gm Q15M PRN PO DECREASED GLUCOSE; Start 09/03/18 at 14:30 Glucose (Glutose) 22.5 gm Q15M PRN PO DECREASED GLUCOSE; Start 09/03/18 at 14:30 Dextrose (D50w Syringe) 25 ml Q15M PRN IV DECREASED GLUCOSE; Start 09/03/18 at 14:30 Dextrose (D50w Syringe) 50 ml Q15M PRN IV DECREASED GLUCOSE; Start 09/03/18 at 14:30 Glucagon (Glucagen) 1 mg Q15M PRN IM DECREASED GLUCOSE; Start 09/03/18 at 14:30 Glucose (Glutose) 15 gm Q15M PRN BUCCAL DECREASED GLUCOSE; Start 09/03/18 at 14:30 Linagliptin (Tradjenta) 5 mg DAILY PO Last administered on 09/05/18at 08:11; Admin Dose 5 MG; Start 09/04/18 at 09:00 Amlodipine Besylate (Norvasc) 10 mg DAILY PO Last administered on 09/05/18 08:12; Admin Dose 10 MG; Start 09/04/18 at 09:00 Benazepril HCl (Lotensin) 20 mg DAILY PO Last administered on 09/05/18at 08:12; Admin Dose 20 MG; Start 09/04/18 at 09:00 EZETIMIBE (Zetia) 10 mg DAILY PO Last administered on 09/05/18at 08:10; Admin Dose 10 MG; Start 09/04/18 at 09:00 Atorvastatin Calcium (Lipitor) 20 mg DAILY PO Last administered on 09/05/18 08:11; Admin Dose 20 MG; Start 09/04/18 at 09:00 Methocarbamol (Robaxin) 500 mg TID PRN PO MUSCLE SPASMS Last administered on 09/04/18at 11:11; Admin Dose 500 MG; Start 09/03/18 at 14:45 Sodium Chloride 1,000 ml @ 70 mls/hr [id number] IV Last administered on 09/04/18at 11:13; Admin Dose 70 MLS/HR; Start 09/04/18 at 09:00 Albuterol/ Ipratropium (Duoneb) 3 ml Q6H RESP THERAPY HHN Last administered on 09/05/18at 07:22; Admin Dose 3 ML; Start 09/05/18 at 08:00 Patient Own Medication 1 ea QHS PO ; Start 09/05/18 at 21:00 Allergies: Coded Allergies: adhesive tape (Verified Allergy, Mild, RASH, 09/03/18) latex (Verified Allergy, Unknown, 09/03/18) Past Surgical History L3-4 decompression, bilateral knee surgery for injury (no hardware present) Social History Smoking Status: Former smoker Exam/Review of Systems Exam Vitals Vital Signs Date Temp Pulse Resp B/P (MAP) Pulse Ox O2 O2 Flow FiO2 Time Delivery Rate 09/05/18 98.2 97 20 120/74 94 Mask 07:24 (89) 09/05/18 15.0 100 04:31 Intake and Output 09/04/18 09/04/18 09/05/18 1515:00 23:00 07:00 IntakeIntake Total 300 ml 200 ml OutputOutput Total 1000 ml BalanceBalance -700 ml 200 ml Constitutional: alert, oriented Eyes: nl sclera ENMT: mucosa pink and moist Respiratory: other (bibasilar crackles) Cardiovascular: regular rate and rhythm Gastrointestinal: soft, non-tender Musculoskeletal: other (back area of surgery is without redness or swelling) Extremities: other (no edema) Neurological: other (non focal) Results Result Diagram: 09/05/18 0335 09/05/18 0335 Results 24hrs Laboratory Tests Test 09/04/18 08:38 09/04/18 12:56 09/04/18 17:39 09/04/18 20:09 Bedside Glucose 156 199 238 H 232 H Test 09/05/18 02:30 09/05/18 02:44 09/05/18 03:35 09/05/18 07:25 Bedside Glucose 258 H 242 H Blood Gas Blood arterial Specimen Source Arterial Blood 09/05/2018 3:32:5 Date Drawn 7 AM Arterial Blood pH 7.396 (Temp corrected) Arterial Blood 54.9 H pCO2 (Temp correct) Arterial Blood 90.6 pO2 (Temp corrected) Arterial Blood 32.9 H HCO3 Arterial Blood 6.5 H Base Excess Arterial Blood 96.8 Oxygen Saturation Clifford Test ACCEPTAB Arterial Blood Right Radial Gas Puncture Site Arterial 1.5 Blood Carboxyhemo globin Arterial Blood 0.2 Methemoglobin Blood Gas A-a O2 567.5 H Differential Oxyhemoglobin 95.2 Percent Blood Gas 37.0 Temperature Blood Gas Actual 12 Respiration Rate Blood Gas MASK - NRB Modality FiO2 100.0 Blood Gas C.V. Notified Whom Blood Gas 09/05/2018 3:41:0 Notified Time 2 AM White Blood Count 9.3 Red Blood Count 4.85 Hemoglobin 13.1 L Hematocrit 40.9 L Mean Corpuscular 84.3 Volume Mean Corpuscular 27.0 L Hemoglobin Mean Corpuscular 32.0 Hemoglobin Concen t Red Cell 13.9 Distribution Width Platelet Count 153 Mean Platelet 9.7 Volume Immature 0.900 H Granulocytes % Neutrophils % 85.3 H Lymphocytes % 7.0 L Monocytes % 6.6 Eosinophils % 0.0 Basophils % 0.2 Nucleated Red 0.0 Blood Cells % Immature 0.080 H Granulocytes # Neutrophils # 8.0 H Lymphocytes # 0.7 L Monocytes # 0.6 Eosinophils # 0.0 Basophils # 0.0 Nucleated Red 0.0 Blood Cells # Sodium Level 139 Potassium Level 4.3 Chloride Level 99 Carbon Dioxide 32 H Level Anion Gap 8 Blood Urea 15 Nitrogen Creatinine 1.05 Est Glomerular > 60 Filtrat Rate mL/min Glucose Level 290 H Calcium Level 8.7 Phosphorus Level 2.4 #L Magnesium Level 1.9 Iron Level 35 Total Iron 299 Binding Capacity Percent Iron 12 L Saturation Ferritin 112.0 Troponin I < 0.012 Medications Medication Current Medications Acetaminophen/ Hydrocodone Bitart ([place] (5/325)) 1 tab Q4H PRN PO .PAIN 1-5; Start 09/03/18 at 11:00 Acetaminophen/ Hydrocodone Bitart ([place] (5/325)) 2 tab Q4H PRN PO .PAIN 6-10 Last administered on 09/04/18at 18:22; Admin Dose 2 TAB; Start 09/03/18 at 11:00 Prochlorperazine (Compazine) 10 mg Q4H PRN PO NAUSEA/VOMITING; Start 09/03/18 at 11:00 Ondansetron HCl (Zofran Inj) 4 mg Q6H PRN IV NAUSEA/VOMITING; Start 09/03/18 at 11:00 Al Hydrox/Mg Hydrox/Simethicone (Mag-Al Plus) 15 ml Q4H PRN PO .CONSTIPATION; Start 09/03/18 at 11:00 Docusate Sodium (Colace) 100 mg BID PO Last administered on 09/05/18at 08:11; Admin Dose 100 MG; Start 09/04/18 at 09:00 Acetaminophen (Tylenol Tab) 650 mg Q4H PRN PO TEMP GREATER THAN 101F OR CORNEJO Last administered on 09/05/18at 03:42; Admin Dose 650 MG; Start 09/03/18 at 11:00 IV Flush (NS 3 ml) 3 ml PER PROTOCOL IV ; Start 09/03/18 at 11:00 Naloxone HCl (Narcan) 0.2 mg Q2M PRN IV RR 8 BREATHS/MIN OR LESS; Start 09/03/18 at 11:00 Allopurinol (Zyloprim) 300 mg DAILY PO Last administered on 09/05/18at 08:12; Admin Dose 300 MG; Start 09/04/18 at 09:00 Diazepam (Valium) 10 mg QHS PO Last administered on 09/04/18at 20:11; Admin Dose 10 MG; Start 09/03/18 at 21:00 Duloxetine HCl (Cymbalta) 40 mg DAILY PO Last administered on 09/05/18 08:12; Admin Dose 40 MG; Start 09/04/18 at 09:00 Metoclopramide HCl (Reglan) 10 mg WITH MEALS BEDTIME PO Last administered on 09/05/18 07:36; Admin Dose 10 MG; Start 09/03/18 at 18:00 Metoprolol Succinate (Toprol Xl) 50 mg DAILY PO Last administered on 09/05/18 08:11; Admin Dose 50 MG; Start 09/04/18 at 09:00 Pantoprazole (Protonix Tab) 40 mg DAILY PO Last administered on 09/05/18 08:12; Admin Dose 40 MG; Start 09/04/18 at 09:00 Sucralfate (Carafate) 1 gm AC MEALS AND BEDTIME PO Last administered on 09/04/18 20:11; Admin Dose 1 GM; Start 09/03/18 at 17:30 Tamsulosin HCl (Flomax) 0.4 mg DAILY PO Last administered on 09/05/18 08:12; Admin Dose 0.4 MG; Start 09/04/18 at 09:00 Trazodone HCl (Desyrel) 50 mg QHS PO Last administered on 09/04/18 20:11; Admin Dose 50 MG; Start 09/03/18 at 21:00 Diagnostic Test (Pha) (Accu-Chek) 1 ea 02 XX Last administered on 09/05/18at 02:31; Admin Dose 1 EA; Start 09/04/18 at 02:00 Insulin Aspart (Novolog Insulin Pen) NOVOLOG *MILD* ALGORITHM AC MEALS SC Last administered on 09/05/18 07:38; Admin Dose 3 UNIT; Start 09/03/18 at 17:30 Ranitidine HCl (Zantac) 150 mg HS PO Last administered on 09/04/18 20:11; Admin Dose 150 MG; Start 09/03/18 at 21:00 Miscellaneous Information 1 ea NOTE XX ; Start 09/03/18 at 14:30 Glucose (Glutose) 15 gm Q15M PRN PO DECREASED GLUCOSE; Start 09/03/18 at 14:30 Glucose (Glutose) 22.5 gm Q15M PRN PO DECREASED GLUCOSE; Start 09/03/18 at 14:30 Dextrose (D50w Syringe) 25 ml Q15M PRN IV DECREASED GLUCOSE; Start 09/03/18 at 14:30 Dextrose (D50w Syringe) 50 ml Q15M PRN IV DECREASED GLUCOSE; Start 09/03/18 at 14:30 Glucagon (Glucagen) 1 mg Q15M PRN IM DECREASED GLUCOSE; Start 09/03/18 at 14:30 Glucose (Glutose) 15 gm Q15M PRN BUCCAL DECREASED GLUCOSE; Start 09/03/18 at 14:30 Linagliptin (Tradjenta) 5 mg DAILY PO Last administered on 09/05/18 08:11; Admin Dose 5 MG; Start 09/04/18 at 09:00 Amlodipine Besylate (Norvasc) 10 mg DAILY PO Last administered on 09/05/18at 08:12; Admin Dose 10 MG; Start 09/04/18 at 09:00 Benazepril HCl (Lotensin) 20 mg DAILY PO Last administered on 09/05/18 08:12; Admin Dose 20 MG; Start 09/04/18 at 09:00 EZETIMIBE (Zetia) 10 mg DAILY PO Last administered on 09/05/18 08:10; Admin Dose 10 MG; Start 09/04/18 at 09:00 Atorvastatin Calcium (Lipitor) 20 mg DAILY PO Last administered on 09/05/18at 08:11; Admin Dose 20 MG; Start 09/04/18 at 09:00 Methocarbamol (Robaxin) 500 mg TID PRN PO MUSCLE SPASMS Last administered on 09/04/18 11:11; Admin Dose 500 MG; Start 09/03/18 at 14:45 Sodium Chloride 1,000 ml @ 70 mls/hr [id number] IV Last administered on 09/04/18at 11:13; Admin Dose 70 MLS/HR; Start 09/04/18 at 09:00 Albuterol/ Ipratropium (Duoneb) 3 ml Q6H RESP THERAPY HHN Last administered on 09/05/18at 07:22; Admin Dose 3 ML; Start 09/05/18 at 08:00 Patient Own Medication 1 ea QHS PO ; Start 09/05/18 at 21:00 LUIS FLORES MD Sep 05, 2018 08:40
--- NOTE | 2018-09-05 08:45 | CONS ---
Assessment/Plan Assessment/Plan Assessment/Plan (Daily) 1. Post op lumbar back surgery 2. Mild confusion last night-resolved 3. Mild hypoxemia prob sec to atelectasis, cxr noted, ct pul angio pending, pul to see 4. Temp, and nl wbc, concern re-aspiration (doubt) ID to see, cultures of blood pending 5. CHO inc, insulin regimen modified 6. Bladder dysfx, await repeat post void us, abd be sure receiving flomax 7. Low P addressed Consultation Date/Type/Reason Admit Date/Time Sep 03, 2018 at 05:45 Initial Consult Date Date/Time of Note DATE: 09/05/18 TIME: 08:42 Detailed Summary Respiratory: No cough, No shortness of breath Cardiovascular: No chest pain, No lightheadedness Gastrointestinal: No pain Genitourinary: No dysuria (but had diff voiding last night) Musculoskeletal: back pain (mild-mod) Neurologic: No headache Exam/Review of Systems Exam Vitals Vital Signs Date Temp Pulse Resp B/P (MAP) Pulse Ox O2 O2 Flow FiO2 Time Delivery Rate 09/05/18 98.2 97 20 120/74 94 Mask 07:24 (89) 09/05/18 15.0 07:22 09/05/18 100 04:31 Intake and Output 09/04/18 09/04/18 09/05/18 1515:00 23:00 07:00 IntakeIntake Total 300 ml 200 ml OutputOutput Total 1000 ml BalanceBalance -700 ml 200 ml Neck: No jvd Respiratory: clear to auscultation Cardiovascular: regular rate and rhythm Gastrointestinal: soft Extremities: No edema, No tenderness Results Result Diagram: 09/05/18 0335 09/05/18 0335 Results 24hrs Laboratory Tests Test 09/04/18 12:56 09/04/18 17:39 09/04/18 20:09 09/05/18 02:30 Bedside Glucose 199 238 H 232 H 258 H Test 09/05/18 02:44 09/05/18 03:35 09/05/18 07:25 Blood Gas Blood arterial Specimen Source Arterial Blood 09/05/2018 3:32:5 Date Drawn 7 AM Arterial Blood pH 7.396 (Temp corrected) Arterial Blood 54.9 H pCO2 (Temp correct) Arterial Blood 90.6 pO2 (Temp corrected) Arterial Blood 32.9 H HCO3 Arterial Blood 6.5 H Base Excess Arterial Blood 96.8 Oxygen Saturation Clifford Test ACCEPTAB Arterial Blood Right Radial Gas Puncture Site Arterial 1.5 Blood Carboxyhemo globin Arterial Blood 0.2 Methemoglobin Blood Gas A-a O2 567.5 H Differential Oxyhemoglobin 95.2 Percent Blood Gas 37.0 Temperature Blood Gas Actual 12 Respiration Rate Blood Gas MASK - NRB Modality FiO2 100.0 Blood Gas C.V. Notified Whom Blood Gas 09/05/2018 3:41:0 Notified Time 2 AM White Blood Count 9.3 Red Blood Count 4.85 Hemoglobin 13.1 L Hematocrit 40.9 L Mean Corpuscular 84.3 Volume Mean Corpuscular 27.0 L Hemoglobin Mean Corpuscular 32.0 Hemoglobin Concen t Red Cell 13.9 Distribution Width Platelet Count 153 Mean Platelet 9.7 Volume Immature 0.900 H Granulocytes % Neutrophils % 85.3 H Lymphocytes % 7.0 L Monocytes % 6.6 Eosinophils % 0.0 Basophils % 0.2 Nucleated Red 0.0 Blood Cells % Immature 0.080 H Granulocytes # Neutrophils # 8.0 H Lymphocytes # 0.7 L Monocytes # 0.6 Eosinophils # 0.0 Basophils # 0.0 Nucleated Red 0.0 Blood Cells # Sodium Level 139 Potassium Level 4.3 Chloride Level 99 Carbon Dioxide 32 H Level Anion Gap 8 Blood Urea 15 Nitrogen Creatinine 1.05 Est Glomerular > 60 Filtrat Rate mL/min Glucose Level 290 H Calcium Level 8.7 Phosphorus Level 2.4 #L Magnesium Level 1.9 Iron Level 35 Total Iron 299 Binding Capacity Percent Iron 12 L Saturation Ferritin 112.0 Troponin I < 0.012 Bedside Glucose 242 H Medications Medication Current Medications Acetaminophen/ Hydrocodone Bitart ([place] (5/325)) 1 tab Q4H PRN PO .PAIN 1-5; Start 09/03/18 at 11:00 Acetaminophen/ Hydrocodone Bitart ([place] (5/325)) 2 tab Q4H PRN PO .PAIN 6-10 Last administered on 09/04/18at 18:22; Admin Dose 2 TAB; Start 09/03/18 at 11:00 Prochlorperazine (Compazine) 10 mg Q4H PRN PO NAUSEA/VOMITING; Start 09/03/18 at 11:00 Ondansetron HCl (Zofran Inj) 4 mg Q6H PRN IV NAUSEA/VOMITING; Start 09/03/18 at 11:00 Al Hydrox/Mg Hydrox/Simethicone (Mag-Al Plus) 15 ml Q4H PRN PO .CONSTIPATION; Start 09/03/18 at 11:00 Docusate Sodium (Colace) 100 mg BID PO Last administered on 09/05/18 08:11; Admin Dose 100 MG; Start 09/04/18 at 09:00 Acetaminophen (Tylenol Tab) 650 mg Q4H PRN PO TEMP GREATER THAN 101F OR CORNEJO Last administered on 09/05/18 03:42; Admin Dose 650 MG; Start 09/03/18 at 11:00 IV Flush (NS 3 ml) 3 ml PER PROTOCOL IV ; Start 09/03/18 at 11:00 Naloxone HCl (Narcan) 0.2 mg Q2M PRN IV RR 8 BREATHS/MIN OR LESS; Start 09/03/18 at 11:00 Allopurinol (Zyloprim) 300 mg DAILY PO Last administered on 09/05/18 08:12; Admin Dose 300 MG; Start 09/04/18 at 09:00 Diazepam (Valium) 10 mg QHS PO Last administered on 09/04/18 20:11; Admin Dose 10 MG; Start 09/03/18 at 21:00 Duloxetine HCl (Cymbalta) 40 mg DAILY PO Last administered on 09/05/18 08:12; Admin Dose 40 MG; Start 09/04/18 at 09:00 Metoclopramide HCl (Reglan) 10 mg WITH MEALS BEDTIME PO Last administered on 09/05/18 07:36; Admin Dose 10 MG; Start 09/03/18 at 18:00 Metoprolol Succinate (Toprol Xl) 50 mg DAILY PO Last administered on 09/05/18 08:11; Admin Dose 50 MG; Start 09/04/18 at 09:00 Pantoprazole (Protonix Tab) 40 mg DAILY PO Last administered on 09/05/18 08:12; Admin Dose 40 MG; Start 09/04/18 at 09:00 Sucralfate (Carafate) 1 gm AC MEALS AND BEDTIME PO Last administered on 09/04/18 20:11; Admin Dose 1 GM; Start 09/03/18 at 17:30 Tamsulosin HCl (Flomax) 0.4 mg DAILY PO Last administered on 09/05/18at 08:12; Admin Dose 0.4 MG; Start 09/04/18 at 09:00 Trazodone HCl (Desyrel) 50 mg QHS PO Last administered on 09/04/18at 20:11; Admin Dose 50 MG; Start 09/03/18 at 21:00 Diagnostic Test (Pha) (Accu-Chek) 1 ea 02 XX Last administered on 09/05/18at 02:31; Admin Dose 1 EA; Start 09/04/18 at 02:00 Ranitidine HCl (Zantac) 150 mg HS PO Last administered on 09/04/18at 20:11; Admin Dose 150 MG; Start 09/03/18 at 21:00 Miscellaneous Information 1 ea NOTE XX ; Start 09/03/18 at 14:30 Glucose (Glutose) 15 gm Q15M PRN PO DECREASED GLUCOSE; Start 09/03/18 at 14:30 Glucose (Glutose) 22.5 gm Q15M PRN PO DECREASED GLUCOSE; Start 09/03/18 at 14:30 Dextrose (D50w Syringe) 25 ml Q15M PRN IV DECREASED GLUCOSE; Start 09/03/18 at 14:30 Dextrose (D50w Syringe) 50 ml Q15M PRN IV DECREASED GLUCOSE; Start 09/03/18 at 14:30 Glucagon (Glucagen) 1 mg Q15M PRN IM DECREASED GLUCOSE; Start 09/03/18 at 14:30 Glucose (Glutose) 15 gm Q15M PRN BUCCAL DECREASED GLUCOSE; Start 09/03/18 at 14:30 Linagliptin (Tradjenta) 5 mg DAILY PO Last administered on 09/05/18at 08:11; Admin Dose 5 MG; Start 09/04/18 at 09:00 Amlodipine Besylate (Norvasc) 10 mg DAILY PO Last administered on 09/05/18 08:12; Admin Dose 10 MG; Start 09/04/18 at 09:00 Benazepril HCl (Lotensin) 20 mg DAILY PO Last administered on 09/05/18at 08:12; Admin Dose 20 MG; Start 09/04/18 at 09:00 EZETIMIBE (Zetia) 10 mg DAILY PO Last administered on 09/05/18at 08:10; Admin Dose 10 MG; Start 09/04/18 at 09:00 Atorvastatin Calcium (Lipitor) 20 mg DAILY PO Last administered on 09/05/18at 08:11; Admin Dose 20 MG; Start 09/04/18 at 09:00 Methocarbamol (Robaxin) 500 mg TID PRN PO MUSCLE SPASMS Last administered on 09/04/18at 11:11; Admin Dose 500 MG; Start 09/03/18 at 14:45 Sodium Chloride 1,000 ml @ 40 mls/hr Q24H IV Last administered on 09/04/18at 11:13; Admin Dose 70 MLS/HR; Start 09/04/18 at 09:00 Albuterol/ Ipratropium (Duoneb) 3 ml Q6H RESP THERAPY HHN Last administered on 09/05/18at 07:22; Admin Dose 3 ML; Start 09/05/18 at 08:00 Patient Own Medication 1 ea QHS PO ; Start 09/05/18 at 21:00 Insulin Glargine (Lantus) 40 units DAILY@2000 ONCE SC ; Start 09/05/18 at 20:00; Stop 09/05/18 at 20:01; Status UNV Miscellaneous Information (* Miscellaneous Pharmacy Order) Discontinue current oral sulfonylur... ONCE ONCE XX ; Start 09/05/18 at 09:00; Stop 09/05/18 at 09:01; Status UNV Diagnostic Test (Pha) (Accu-Chek) 1 ea 02 XX ; Start 09/06/18 at 02:00; Status UNV Miscellaneous Information (* Miscellaneous Pharmacy Order) HYPOGLYCEMIA PROTOCOL w... ONCE ONCE XX ; Start 09/05/18 at 09:00; Stop 09/05/18 at 09:01; Status UNV Insulin Aspart (Novolog Insulin Pen) NOVOLOG *MODERATE* ALGORITHM WITH MEALS BEDTIME SC ; Start 09/05/18 at 12:00; Status UNV Miscellaneous Information (* Miscellaneous Pharmacy Order) Discontinue all previ... ONCE ONCE XX ; Start 09/05/18 at 09:00; Stop 09/05/18 at 09:01; Status UNV Sodium Phosphate 20 meq/Sodium Chloride 255 ml @ 63.75 mls/ hr ONCE ONCE IVPB ; Start 09/05/18 at 09:00; Stop 09/05/18 at 12:59; Status UNV Ferric Sodium Gluconate Complex 125 mg/Sodium Chloride 110 ml @ 110 mls/hr DAILY@1300 IVPB ; Start 09/05/18 at 13:00; Stop 09/09/18 at 13:59; Status UNV DIANA PAZ MD Sep 05, 2018 08:45
[2018-09-05] MEDS ORDERED: IODIXANOL LOCM 100 ML BTL ONE (08:55)
[2018-09-05] MEDS ORDERED: SOD CHLORIDE 0.9% 100 ML ONE (08:55)
[2018-09-05] MEDS ORDERED: SODIUM PHOSPHATE 20 MEQ in SOD CHLORIDE 0.9% 250 ML IVPB ONE (10:00)
[2018-09-05] MEDS: SOD FERRIC GLUC COMPLX 125 MG in SOD CHLORIDE 0.9% 100 ML IVPB SCH (13:54)
[2018-09-05] MEDS: SOD CHLORIDE 0.9% 1,000 ML IV SCH (17:15)
--- NOTE | 2018-09-05 18:17 | CONS ---
DATE OF ADMISSION: 09/03/2018 DATE OF CONSULTATION: TYPE OF CONSULTATION: Pulmonary REASON FOR CONSULTATION: Shortness of breath. Thank you, Dr. Paz, for this consultation. HISTORY OF PRESENT ILLNESS: This is a 52-year-old gentleman with recent history of lumbar back surge ry. Postoperatively, he has had moderate hypoxemia with chest x-ray demonstrating bibasilar atelecta sis. CT angiogram demonstrated no acute pulmonary embolism. The patient has no prior pulmonary prob lems, states he is a nonsmoker. Denies any history of obstructive sleep apnea. PAST MEDICAL HISTORY: 1. Lumbar spine disease. 2. Diabetes mellitus. 3. History of migraines. 4. History of gout. MEDICATIONS: Per chart. ALLERGIES: NONE. SOCIAL HISTORY: Nonsmoker, no alcohol, no history of drug use. FAMILY HISTORY: Noncontributory. SYSTEMS REVIEW: A 12-point review of systems is negative other than that mentioned above. PHYSICAL EXAMINATION: GENERAL: Morbidly obese gentleman, appears comfortable, on facemask O2. VITAL SIGNS: Currently afebrile, pulse is 90, blood pressure 125/77, O2 saturation 96% on Ventimask. NECK: Supple. No JVD or lymphadenopathy. CARDIAC: S1, S2, no added sounds or murmurs. CHEST: Diminished air entry bilaterally. ABDOMEN: Soft, nontender. No guarding or rebound. EXTREMITIES: No cyanosis, clubbing, 1+ edema. NEUROLOGIC: Lower extremity weakness. LABORATORY DATA: White count 9.3, hemoglobin 13.1, platelets of 153. BNP mildly elevated at 539. A rterial blood gas PaO2 was 19. DIAGNOSTIC DATA: Chest CT and x-ray findings as above. IMPRESSION AND PLAN: 1. Status post lumbar spine surgery. 2. Probable underlying undiagnosed obstructive sleep apnea. 3. Alveolar hypoventilation with subsequent hypoxemia. 4. Urinary retention following recent spinal surgery. The patient will require: 1. Incentive spirometry. 2. Supplemental O2. 3. Will hold off on bronchodilator treatment for now. 4. May require nocturnal noninvasive positive pressure ventilation. 5. Outpatient sleep study. Dictated By: WAYNE NIXON MD SV/NTS Conf#: [id number] DID#: [id number] CC: DIANA PAZ MD; LE MINAYA MD;*EndCC*
[2018-09-05] MEDS: LEVALBUTEROL (NEB) 0.63 MG/3 ML AMP HHN SCH (19:33)
[2018-09-05] MEDS ORDERED: INSULIN GLARGINE [LANTus] (100 UNITS/ML) SYG SC ONE (20:00)
[2018-09-05] MEDS: traZODone 50 MG TAB PO SCH (20:33)
[2018-09-05] MEDS: DIAZEPAM 5 MG TAB PO SCH (20:33)
[2018-09-05] MEDS: RANITIDINE 150 MG TAB PO SCH (20:34)
[2018-09-05] MEDS: QUININE SULFATE 324 MG CAPSULE PO SCH (20:35)
[2018-09-05] MEDS: HYDROCODONE/APAP (5/325) TAB PO PRN (23:51)
[2018-09-06] MEDS: ACCU-CHEK XX SCH ×2 (02:00)
[2018-09-06] MEDS: LEVALBUTEROL (NEB) 0.63 MG/3 ML AMP HHN SCH ×4 (02:00→19:32)
[2018-09-06 04:07] VITALS: BP 104/65; PULSE 91; RESP 20
[2018-09-06] MEDS: HYDROCODONE/APAP (5/325) TAB PO PRN ×2 (06:18→17:26)
[2018-09-06] MEDS: SUCRALFATE 1 GM TAB PO SCH ×4 (06:18→20:33)
[2018-09-06] MEDS: SOD CHLORIDE 0.9% 1,000 ML IV SCH (07:01)
[2018-09-06 07:15] VITALS: BP 122/65; PULSE 66; RESP 20
[2018-09-06] MEDS: METOCLOPRAMIDE 10 MG TAB PO SCH ×4 (07:34→20:33)
[2018-09-06] MEDS: INSULIN ASPART [NOVOLOG] 3 ML PEN SC SCH ×4 (07:45→20:41)
--- NOTE | 2018-09-06 08:34 | CONS ---
Assessment/Plan Assessment/Plan Assessment/Plan (Daily) 1. Post op lumbar back surgery 2. CV stable 3. Hypoxemia prob sec to atelectasis and elev right hemidiaphragm, will recheck RA oxygen Sat 4. DM, control improved 5. Controlled 6. Need to mobilize 7. Maurer to be dc's and ck post void residual Consultation Date/Type/Reason Admit Date/Time Sep 03, 2018 at 05:45 Initial Consult Date Date/Time of Note DATE: 09/06/18 TIME: 08:32 Detailed Summary Respiratory: No cough, No pleuritic pain, No shortness of breath Cardiovascular: No chest pain Gastrointestinal: constipation Genitourinary: other (amurer in place) Musculoskeletal: back pain (is less) Exam/Review of Systems Exam Vitals Vital Signs Date Temp Pulse Resp B/P (MAP) Pulse Ox O2 O2 Flow FiO2 Time Delivery Rate 09/06/18 98.2 66 20 122/65 91 Nasal 07:15 (84) Cannula 09/06/18 6.0 02:19 09/05/18 44 19:35 Intake and Output 09/05/18 09/05/18 09/06/18 1515:00 23:00 07:00 IntakeIntake Total 720 ml 480 ml OutputOutput Total 650 ml 1600 ml 1500 ml BalanceBalance 70 ml -1120 ml -1500 ml Neck: No jvd Respiratory: clear to auscultation Cardiovascular: regular rate and rhythm; No S3 Gastrointestinal: soft Extremities: No edema, No tenderness Results Result Diagram: 09/06/18 0545 09/06/18 0545 Results 24hrs Laboratory Tests Test 09/05/18 11:00 09/05/18 11:35 09/05/18 17:10 09/05/18 20:31 Urine Color YELLOW Urine Clarity CLEAR Urine pH 6.0 Urine Specific 1.038 H [place] Urine Ketones TRACE A Urine Nitrite NEGATIVE Urine Bilirubin NEGATIVE Urine Urobilinogen NEGATIVE Urine Leukocyte NEGATIVE Esterase Urine Hemoglobin NEGATIVE Urine Glucose 3+ H Urine Total Protein NEGATIVE Bedside Glucose 228 H 338 H 295 H Test 09/06/18 02:23 09/06/18 05:45 09/06/18 07:33 Bedside Glucose 209 177 White Blood Count 6.3 # Red Blood Count 4.81 Hemoglobin 12.9 L Hematocrit 40.4 L Mean Corpuscular 84.0 Volume Mean Corpuscular 26.8 L Hemoglobin Mean Corpuscular 31.9 L Hemoglobin Concent Red Cell 13.3 Distribution Width Platelet Count 152 Mean Platelet Volume 9.4 Immature 0.600 H Granulocytes % Neutrophils % 66.8 Lymphocytes % 18.1 Monocytes % 11.2 H Eosinophils % 3.0 Basophils % 0.3 Nucleated Red Blood 0.0 Cells % Immature 0.040 H Granulocytes # Neutrophils # 4.2 Lymphocytes # 1.1 Monocytes # 0.7 Eosinophils # 0.2 Basophils # 0.0 Nucleated Red Blood 0.0 Cells # Sodium Level 143 Potassium Level 4.0 Chloride Level 103 Carbon Dioxide Level 35 H Anion Gap 5 Blood Urea Nitrogen 16 Creatinine 0.80 Est Glomerular > 60 Filtrat Rate mL/min Glucose Level 195 Calcium Level 8.7 Phosphorus Level 3.1 Magnesium Level 2.0 Medications Medication Current Medications Acetaminophen/ Hydrocodone Bitart ([place] (5/325)) 1 tab Q4H PRN PO .PAIN 1-5; Start 09/03/18 at 11:00 Acetaminophen/ Hydrocodone Bitart ([place] (5/325)) 2 tab Q4H PRN PO .PAIN 6-10 Last administered on 09/06/18at 06:18; Admin Dose 2 TAB; Start 09/03/18 at 11:00 Prochlorperazine (Compazine) 10 mg Q4H PRN PO NAUSEA/VOMITING; Start 09/03/18 at 11:00 Ondansetron HCl (Zofran Inj) 4 mg Q6H PRN IV NAUSEA/VOMITING; Start 09/03/18 at 11:00 Al Hydrox/Mg Hydrox/Simethicone (Mag-Al Plus) 15 ml Q4H PRN PO .CONSTIPATION; Start 09/03/18 at 11:00 Docusate Sodium (Colace) 100 mg BID PO Last administered on 09/05/18at 08:11; Admin Dose 100 MG; Start 09/04/18 at 09:00 Acetaminophen (Tylenol Tab) 650 mg Q4H PRN PO TEMP GREATER THAN 101F OR CORNEJO Last administered on 09/05/18at 15:41; Admin Dose 650 MG; Start 09/03/18 at 11:00 IV Flush (NS 3 ml) 3 ml PER PROTOCOL IV ; Start 09/03/18 at 11:00 Naloxone HCl (Narcan) 0.2 mg Q2M PRN IV RR 8 BREATHS/MIN OR LESS; Start 08/20 07/08 at 11:00 Allopurinol (Zyloprim) 300 mg DAILY PO Last administered on 09/05/18 08:12; Admin Dose 300 MG; Start 09/04/18 at 09:00 Diazepam (Valium) 10 mg QHS PO Last administered on 09/05/18 20:33; Admin Dose 10 MG; Start 09/03/18 at 21:00 Duloxetine HCl (Cymbalta) 40 mg DAILY PO Last administered on 09/05/18 08:12; Admin Dose 40 MG; Start 09/04/18 at 09:00 Metoclopramide HCl (Reglan) 10 mg WITH MEALS BEDTIME PO Last administered on 09/06/18 07:34; Admin Dose 10 MG; Start 09/03/18 at 18:00 Metoprolol Succinate (Toprol Xl) 50 mg DAILY PO Last administered on 09/05/18 08:11; Admin Dose 50 MG; Start 09/04/18 at 09:00 Pantoprazole (Protonix Tab) 40 mg DAILY PO Last administered on 09/05/18 08:12; Admin Dose 40 MG; Start 09/04/18 at 09:00 Sucralfate (Carafate) 1 gm AC MEALS AND BEDTIME PO Last administered on 09/05/18 20:33; Admin Dose 1 GM; Start 09/03/18 at 17:30 Tamsulosin HCl (Flomax) 0.4 mg DAILY PO Last administered on 09/05/18 08:12; Admin Dose 0.4 MG; Start 09/04/18 at 09:00 Trazodone HCl (Desyrel) 50 mg QHS PO Last administered on 09/05/18 20:33; Admin Dose 50 MG; Start 09/03/18 at 21:00 Diagnostic Test (Pha) (Accu-Chek) 1 ea 02 XX Last administered on 09/06/18 02:00; Admin Dose 1 EA; Start 09/04/18 at 02:00 Ranitidine HCl (Zantac) 150 mg HS PO Last administered on 09/05/18 20:34; Admin Dose 150 MG; Start 09/03/18 at 21:00 Miscellaneous Information 1 ea NOTE XX ; Start 09/03/18 at 14:30 Glucose (Glutose) 15 gm Q15M PRN PO DECREASED GLUCOSE; Start 09/03/18 at 14:30 Glucose (Glutose) 22.5 gm Q15M PRN PO DECREASED GLUCOSE; Start 09/03/18 at 14: 30 Dextrose (D50w Syringe) 25 ml Q15M PRN IV DECREASED GLUCOSE; Start 09/03/18 at 14:30 Dextrose (D50w Syringe) 50 ml Q15M PRN IV DECREASED GLUCOSE; Start 09/03/18 at 14:30 Glucagon (Glucagen) 1 mg Q15M PRN IM DECREASED GLUCOSE; Start 09/03/18 at 14:30 Glucose (Glutose) 15 gm Q15M PRN BUCCAL DECREASED GLUCOSE; Start 09/03/18 at 14:30 Linagliptin (Tradjenta) 5 mg DAILY PO Last administered on 09/05/18at 08:11; Admin Dose 5 MG; Start 09/04/18 at 09:00 Amlodipine Besylate (Norvasc) 10 mg DAILY PO Last administered on 09/05/18at 08:12; Admin Dose 10 MG; Start 09/04/18 at 09:00 Benazepril HCl (Lotensin) 20 mg DAILY PO Last administered on 09/05/18at 08:12; Admin Dose 20 MG; Start 09/04/18 at 09:00 EZETIMIBE (Zetia) 10 mg DAILY PO Last administered on 09/05/18at 08:10; Admin Dose 10 MG; Start 09/04/18 at 09:00 Atorvastatin Calcium (Lipitor) 20 mg DAILY PO Last administered on 09/05/18at 08 :11; Admin Dose 20 MG; Start 09/04/18 at 09:00 Methocarbamol (Robaxin) 500 mg TID PRN PO MUSCLE SPASMS Last administered on 09/04/18at 11:11; Admin Dose 500 MG; Start 09/03/18 at 14:45 Sodium Chloride 1,000 ml @ 40 mls/hr Q24H IV Last administered on 09/06/18at 07:01; Admin Dose 40 MLS/HR; Start 09/04/18 at 09:00 Patient Own Medication 1 ea QHS PO Last administered on 09/05/18at 20:35; Admin Dose 1 EA; Start 09/05/18 at 21:00 Diagnostic Test (Pha) (Accu-Chek) 1 ea 02 XX Last administered on 09/06/18at 02:00; Admin Dose 1 EA; Start 09/06/18 at 02:00 Insulin Aspart (Novolog Insulin Pen) NOVOLOG *MODERATE* ALGORITHM WITH MEALS BEDTIME SC Last administered on 09/06/18at 07:45; Admin Dose 2 UNIT; Start 09/05/18 at 12:00 Ferric Sodium Gluconate Complex 125 mg/Sodium Chloride 110 ml @ 110 mls/hr DAILY@1300 IVPB Last administered on 09/05/18at 13:54; Admin Dose 110 MLS/HR; Start 09/05/18 at 13:00; Stop 09/09/18 at 13:59 Levalbuterol (Xopenex Neb) 0.63 mg Q6H RESP THERAPY HHN Last administered on 09/05/18at 19:33; Admin Dose 0.63 MG; Start 09/05/18 at 20:00 DIANA PAZ MD Sep 06, 2018 08:34
[2018-09-06] MEDS: BENAZEPRIL 20 MG TAB PO SCH (08:40)
[2018-09-06] MEDS: METOPROLOL (XL) 50 MG TAB PO SCH (08:40)
[2018-09-06] MEDS: EZETIMIBE 10 MG TAB PO SCH (08:41)
[2018-09-06] MEDS: AMLODIPINE 10 MG TAB PO SCH (08:41)
[2018-09-06] MEDS: ATORVASTATIN 20 MG TAB PO SCH (08:41)
[2018-09-06] MEDS: TAMSULOSIN (SR) 0.4 MG CAP PO SCH (08:41)
[2018-09-06] MEDS: ALLOPURINOL 300 MG TAB PO SCH (08:42)
[2018-09-06] MEDS: LINAGLIPTIN 5 MG TABLET PO SCH (08:42)
[2018-09-06] MEDS: PANTOPRAZOLE (EC) 40 MG TAB PO SCH (08:42)
[2018-09-06] MEDS: DULOXETINE 20 MG CAP DR PO SCH (08:43)
[2018-09-06] MEDS: DOCUSATE SODIUM 100 MG CAP PO SCH ×2 (08:44→20:33)
--- NOTE | 2018-09-06 11:05 | CONS ---
Assessment/Plan Assessment/Plan Hospital Course (Demo Recall) 1) post op fever the possible sources for infection would include the lung and urine pt has atelectasis noted on CXR and he has crackles at his lung bases but he denies respiratory problems he has urinary retention which can predispose him to infection also his surgical site looks good and doubt this is a source for his fever I have ordered procalcitonin and u/a and urine cx blood cx were done if procalcitonin and u/a are benign looking then will hold off on antibiotics but if abnormal then will start antibiotics WBC this a.m. is good, pt had no shaking chill, he has no localizing signs are present, and looks very stable, so until more info is gathered will hold off on antibiotics 09/06 - procalcitonin was neg, u/a was benign, no further fevers and WNL WBC continue off antibiotics I further fever please re-consult 2) s/p lumbar fusion with plates installed no sign of local infection at surgical site and too soon for abscess to appear 3) urinary retention get stat u/a and urine cx, straight cath if necessary 4) lung atelectasis re-start incentive spirometer get procalcitonin now and in a.m. 5) DM 6) hx of gout no current symptoms 7) migraines consider imitrex for pt Consultation Date/Type/Reason Admit Date/Time Sep 03, 2018 at 05:45 Initial Consult Date 09/05/18 Type of Consult ID Date/Time of Note DATE: 09/06/18 TIME: 11:03 24 HR Interval Summary Free Text/Dictation no further fevers pt states breathing is a bit shallow no N, V, D Exam/Review of Systems Exam Vitals Vital Signs Date Temp Pulse Resp B/P (MAP) Pulse Ox O2 O2 Flow FiO2 Time Delivery Rate 09/06/18 Nasal 3.0 07:45 Cannula 09/06/18 98.2 66 20 122/65 91 07:15 (84) 09/05/18 44 19:35 Intake and Output 09/05/18 09/05/18 09/06/18 1515:00 23:00 07:00 IntakeIntake Total 720 ml 480 ml OutputOutput Total 650 ml 1600 ml 1500 ml BalanceBalance 70 ml -1120 ml -1500 ml Constitutional: alert ENMT: mucosa pink and moist Respiratory: clear to auscultation Cardiovascular: regular rate and rhythm Gastrointestinal: soft, non-tender Results Result Diagram: 09/06/18 0545 09/06/18 0545 Results 24hrs Laboratory Tests Test 09/05/18 11:35 09/05/18 17:10 09/05/18 20:31 09/06/18 02:23 Bedside Glucose 228 H 338 H 295 H 209 Test 09/06/18 05:45 09/06/18 07:33 White Blood Count 6.3 # Red Blood Count 4.81 Hemoglobin 12.9 L Hematocrit 40.4 L Mean Corpuscular 84.0 Volume Mean Corpuscular 26.8 L Hemoglobin Mean Corpuscular 31.9 L Hemoglobin Concent Red Cell 13.3 Distribution Width Platelet Count 152 Mean Platelet Volume 9.4 Immature 0.600 H Granulocytes % Neutrophils % 66.8 Lymphocytes % 18.1 Monocytes % 11.2 H Eosinophils % 3.0 Basophils % 0.3 Nucleated Red Blood 0.0 Cells % Immature 0.040 H Granulocytes # Neutrophils # 4.2 Lymphocytes # 1.1 Monocytes # 0.7 Eosinophils # 0.2 Basophils # 0.0 Nucleated Red Blood 0.0 Cells # Sodium Level 143 Potassium Level 4.0 Chloride Level 103 Carbon Dioxide Level 35 H Anion Gap 5 Blood Urea Nitrogen 16 Creatinine 0.80 Est Glomerular > 60 Filtrat Rate mL/min Glucose Level 195 Calcium Level 8.7 Phosphorus Level 3.1 Magnesium Level 2.0 Bedside Glucose 177 Medications Medication Current Medications Acetaminophen/ Hydrocodone Bitart ([place] (5/325)) 1 tab Q4H PRN PO .PAIN 1-5; Start 09/03/18 at 11:00 Acetaminophen/ Hydrocodone Bitart ([place] (5/325)) 2 tab Q4H PRN PO .PAIN 6-10 Last administered on 09/06/18at 06:18; Admin Dose 2 TAB; Start 09/03/18 at 11:00 Prochlorperazine (Compazine) 10 mg Q4H PRN PO NAUSEA/VOMITING; Start 09/03/18 at 11:00 Ondansetron HCl (Zofran Inj) 4 mg Q6H PRN IV NAUSEA/VOMITING; Start 09/03/18 at 11:00 Al Hydrox/Mg Hydrox/Simethicone (Mag-Al Plus) 15 ml Q4H PRN PO .CONSTIPATION; Start 09/03/18 at 11:00 Docusate Sodium (Colace) 100 mg BID PO Last administered on 09/05/18 08:11; Admin Dose 100 MG; Start 09/04/18 at 09:00 Acetaminophen (Tylenol Tab) 650 mg Q4H PRN PO TEMP GREATER THAN 101F OR CORNEJO Last administered on 09/05/18 15:41; Admin Dose 650 MG; Start 09/03/18 at 11:00 IV Flush (NS 3 ml) 3 ml PER PROTOCOL IV ; Start 09/03/18 at 11:00 Naloxone HCl (Narcan) 0.2 mg Q2M PRN IV RR 8 BREATHS/MIN OR LESS; Start 09/03/18 at 11:00 Allopurinol (Zyloprim) 300 mg DAILY PO Last administered on 09/06/18 08:42; Admin Dose 300 MG; Start 09/04/18 at 09:00 Diazepam (Valium) 10 mg QHS PO Last administered on 09/05/18 20:33; Admin Dose 10 MG; Start 09/03/18 at 21:00 Duloxetine HCl (Cymbalta) 40 mg DAILY PO Last administered on 09/06/18 08:43; Admin Dose 40 MG; Start 09/04/18 at 09:00 Metoclopramide HCl (Reglan) 10 mg WITH MEALS BEDTIME PO Last administered on 09/06/18 07:34; Admin Dose 10 MG; Start 09/03/18 at 18:00 Metoprolol Succinate (Toprol Xl) 50 mg DAILY PO Last administered on 09/06/18 08:40; Admin Dose 50 MG; Start 09/04/18 at 09:00 Pantoprazole (Protonix Tab) 40 mg DAILY PO Last administered on 09/06/18 08:42; Admin Dose 40 MG; Start 09/04/18 at 09:00 Sucralfate (Carafate) 1 gm AC MEALS AND BEDTIME PO Last administered on 09/05/18 20:33; Admin Dose 1 GM; Start 09/03/18 at 17:30 Tamsulosin HCl (Flomax) 0.4 mg DAILY PO Last administered on 09/06/18 08:41; Admin Dose 0.4 MG; Start 09/04/18 at 09:00 Trazodone HCl (Desyrel) 50 mg QHS PO Last administered on 09/05/18at 20:33; Admin Dose 50 MG; Start 09/03/18 at 21:00 Diagnostic Test (Pha) (Accu-Chek) 1 ea 02 XX Last administered on 09/06/18at 02:00; Admin Dose 1 EA; Start 09/04/18 at 02:00 Ranitidine HCl (Zantac) 150 mg HS PO Last administered on 09/05/18at 20:34; Admin Dose 150 MG; Start 09/03/18 at 21:00 Miscellaneous Information 1 ea NOTE XX ; Start 09/03/18 at 14:30 Glucose (Glutose) 15 gm Q15M PRN PO DECREASED GLUCOSE; Start 09/03/18 at 14:30 Glucose (Glutose) 22.5 gm Q15M PRN PO DECREASED GLUCOSE; Start 09/03/18 at 14:30 Dextrose (D50w Syringe) 25 ml Q15M PRN IV DECREASED GLUCOSE; Start 09/03/18 at 14:30 Dextrose (D50w Syringe) 50 ml Q15M PRN IV DECREASED GLUCOSE; Start 09/03/18 at 14:30 Glucagon (Glucagen) 1 mg Q15M PRN IM DECREASED GLUCOSE; Start 09/03/18 at 14:30 Glucose (Glutose) 15 gm Q15M PRN BUCCAL DECREASED GLUCOSE; Start 09/03/18 at 14:30 Linagliptin (Tradjenta) 5 mg DAILY PO Last administered on 09/06/18at 08:42; Admin Dose 5 MG; Start 09/04/18 at 09:00 Amlodipine Besylate (Norvasc) 10 mg DAILY PO Last administered on 09/06/18at 08:41; Admin Dose 10 MG; Start 09/04/18 at 09:00 Benazepril HCl (Lotensin) 20 mg DAILY PO Last administered on 09/06/18at 08:40; Admin Dose 20 MG; Start 09/04/18 at 09:00 EZETIMIBE (Zetia) 10 mg DAILY PO Last administered on 09/06/18at 08:41; Admin Dose 10 MG; Start 09/04/18 at 09:00 Atorvastatin Calcium (Lipitor) 20 mg DAILY PO Last administered on 09/06/18at 08:41; Admin Dose 20 MG; Start 09/04/18 at 09:00 Methocarbamol (Robaxin) 500 mg TID PRN PO MUSCLE SPASMS Last administered on 09/04/18 11:11; Admin Dose 500 MG; Start 09/03/18 at 14:45 Patient Own Medication 1 ea QHS PO Last administered on 09/05/18at 20:35; Admin Dose 1 EA; Start 09/05/18 at 21:00 Diagnostic Test (Pha) (Accu-Chek) 1 ea 02 XX Last administered on 09/06/18at 02:00; Admin Dose 1 EA; Start 09/06/18 at 02:00 Insulin Aspart (Novolog Insulin Pen) NOVOLOG *MODERATE* ALGORITHM WITH MEALS BEDTIME SC Last administered on 09/06/18 07:45; Admin Dose 2 UNIT; Start 09/05/18 at 12:00 Ferric Sodium Gluconate Complex 125 mg/Sodium Chloride 110 ml @ 110 mls/hr DAILY@1300 IVPB Last administered on 09/05/18at 13:54; Admin Dose 110 MLS/HR; Start 09/05/18 at 13:00; Stop 09/09/18 at 13:59 Levalbuterol (Xopenex Neb) 0.63 mg Q6H RESP THERAPY HHN Last administered on 09/06/18at 09:38; Admin Dose 0.63 MG; Start 09/05/18 at 20:00 Insulin Glargine (Lantus) 40 units DAILY@2000 ONCE SC ; Start 09/06/18 at 20:00; Stop 09/06/18 at 20:01 LUIS FLOERS MD Sep 06, 2018 11:05
[2018-09-06 11:20] VITALS: BP 113/75; PULSE 76; RESP 21
[2018-09-06] MEDS: SOD FERRIC GLUC COMPLX 125 MG in SOD CHLORIDE 0.9% 100 ML IVPB SCH (12:40)
--- NOTE | 2018-09-06 13:20 | CONS ---
Consultation Date/Type/Reason Admit Date/Time Sep 03, 2018 at 05:45 Initial Consult Date Date/Time of Note DATE: 09/06/18 TIME: 13:17 24 HR Interval Summary Free Text/Dictation S: 52 yo M POD#3 s/p L3-4 lateral interbody fusion w/ lateral plate. His post- operative course has been complicated with episodes of O2 desaturation requiring O2. A CT angio was ordered which did not show e/o PE. Pulmonary is following the patient, He has a history of BPH and is on flomax. A maurer cath was also placed for urinary retention. He is currently taking PO [place] for his pain and is OOB w/ PT daily. He has been encouraged to use IS. O: Vital Signs Date Temp Pulse Resp B/P (MAP) Pulse Ox O2 O2 Flow FiO2 Time Delivery Rate 09/06/18 98.1 76 21 113/75 94 Nasal 11:20 (88) Cannula 09/06/18 3.0 07:45 09/05/18 44 19:35 Spine: 4/5 b/l HF/KE/TA/GS, +SILT L3-S1, dressing C/D/I A/P:52 yo M POD#3 s/p L3-4 lateral interbody fusion 1. Appreciate medicine and pulm recs 2. OOB w/ PT 4. Dispo planning for tomorrow once cleared by PT and medicine 5. Appreciate med recs Exam/Review of Systems Exam Vitals Vital Signs Date Temp Pulse Resp B/P (MAP) Pulse Ox O2 O2 Flow FiO2 Time Delivery Rate 09/06/18 98.1 76 21 113/75 94 Nasal 11:20 (88) Cannula 09/06/18 3.0 07:45 09/05/18 44 19:35 Intake and Output 09/05/18 09/05/18 09/06/18 1515:00 23:00 07:00 IntakeIntake Total 720 ml 480 ml OutputOutput Total 650 ml 1600 ml 1500 ml BalanceBalance 70 ml -1120 ml -1500 ml Results Result Diagram: 09/06/18 0545 09/06/18 0545 Results 24hrs Laboratory Tests Test 09/05/18 17:10 09/05/18 20:31 09/06/18 02:23 09/06/18 05:45 Bedside Glucose 338 H 295 H 209 White Blood Count 6.3 # Red Blood Count 4.81 Hemoglobin 12.9 L Hematocrit 40.4 L Mean Corpuscular 84.0 Volume Mean Corpuscular 26.8 L Hemoglobin Mean Corpuscular 31.9 L Hemoglobin Concen t Red Cell 13.3 Distribution Width Platelet Count 152 Mean Platelet 9.4 Volume Immature 0.600 H Granulocytes % Neutrophils % 66.8 Lymphocytes % 18.1 Monocytes % 11.2 H Eosinophils % 3.0 Basophils % 0.3 Nucleated Red 0.0 Blood Cells % Immature 0.040 H Granulocytes # Neutrophils # 4.2 Lymphocytes # 1.1 Monocytes # 0.7 Eosinophils # 0.2 Basophils # 0.0 Nucleated Red 0.0 Blood Cells # Sodium Level 143 Potassium Level 4.0 Chloride Level 103 Carbon Dioxide 35 H Level Anion Gap 5 Blood Urea 16 Nitrogen Creatinine 0.80 Est Glomerular > 60 Filtrat Rate mL/min Glucose Level 195 Calcium Level 8.7 Phosphorus Level 3.1 Magnesium Level 2.0 Procalcitonin 0.03 Test 09/06/18 07:33 09/06/18 11:40 09/06/18 12:00 Bedside Glucose 177 218 Blood Gas Blood arterial Specimen Source Arterial Blood 09/06/2018 12:35: Date Drawn 02 PM Arterial Blood pH 7.411 (Temp corrected) Arterial Blood 49.2 H pCO2 (Temp correct) Arterial Blood 55.8 L pO2 (Temp corrected) Arterial Blood 30.6 H HCO3 Arterial Blood 4.9 H Base Excess Arterial Blood 89.3 L Oxygen Saturation Clifford Test ACCEPTAB Arterial Blood Right Radial Gas Puncture Site Arterial 1.1 Blood Carboxyhemo globin Arterial Blood 0.1 Methemoglobin Blood Gas A-a O2 35.0 H Differential Oxyhemoglobin 88.2 L Percent Blood Gas 37.0 Temperature Blood Gas ROOM AIR Modality FiO2 21.0 Blood Gas TM Notified Whom Blood Gas 09/06/2018 12:44: Notified Time 40 PM Medications Medication Current Medications Acetaminophen/ Hydrocodone Bitart ([place] (5/325)) 1 tab Q4H PRN PO .PAIN 1-5; Start 09/03/18 at 11:00 Acetaminophen/ Hydrocodone Bitart ([place] (5/325)) 2 tab Q4H PRN PO .PAIN 6-10 Last administered on 09/06/18at 06:18; Admin Dose 2 TAB; Start 09/03/18 at 11:00 Prochlorperazine (Compazine) 10 mg Q4H PRN PO NAUSEA/VOMITING; Start 09/03/18 at 11:00 Ondansetron HCl (Zofran Inj) 4 mg Q6H PRN IV NAUSEA/VOMITING; Start 09/03/18 at 11:00 Al Hydrox/Mg Hydrox/Simethicone (Mag-Al Plus) 15 ml Q4H PRN PO .CONSTIPATION; Start 09/03/18 at 11:00 Docusate Sodium (Colace) 100 mg BID PO Last administered on 09/05/18at 08:11; Admin Dose 100 MG; Start 09/04/18 at 09:00 Acetaminophen (Tylenol Tab) 650 mg Q4H PRN PO TEMP GREATER THAN 101F OR CORNEJO Last administered on 09/05/18at 15:41; Admin Dose 650 MG; Start 09/03/18 at 11:00 IV Flush (NS 3 ml) 3 ml PER PROTOCOL IV ; Start 09/03/18 at 11:00 Naloxone HCl (Narcan) 0.2 mg Q2M PRN IV RR 8 BREATHS/MIN OR LESS; Start 09/03/18 at 11:00 Allopurinol (Zyloprim) 300 mg DAILY PO Last administered on 09/06/18 08:42; Admin Dose 300 MG; Start 09/04/18 at 09:00 Diazepam (Valium) 10 mg QHS PO Last administered on 09/05/18 20:33; Admin Dose 10 MG; Start 09/03/18 at 21:00 Duloxetine HCl (Cymbalta) 40 mg DAILY PO Last administered on 09/06/18 08:43; Admin Dose 40 MG; Start 09/04/18 at 09:00 Metoclopramide HCl (Reglan) 10 mg WITH MEALS BEDTIME PO Last administered on 09/06/18 11:50; Admin Dose 10 MG; Start 09/03/18 at 18:00 Metoprolol Succinate (Toprol Xl) 50 mg DAILY PO Last administered on 09/06/18 08:40; Admin Dose 50 MG; Start 09/04/18 at 09:00 Pantoprazole (Protonix Tab) 40 mg DAILY PO Last administered on 09/06/18 08:42; Admin Dose 40 MG; Start 09/04/18 at 09:00 Sucralfate (Carafate) 1 gm AC MEALS AND BEDTIME PO Last administered on 09/06/18at 11:50; Admin Dose 1 GM; Start 09/03/18 at 17:30 Tamsulosin HCl (Flomax) 0.4 mg DAILY PO Last administered on 09/06/18 08:41; Admin Dose 0.4 MG; Start 09/04/18 at 09:00 Trazodone HCl (Desyrel) 50 mg QHS PO Last administered on 09/05/18 20:33; Admin Dose 50 MG; Start 09/03/18 at 21:00 Diagnostic Test (Pha) (Accu-Chek) 1 ea 02 XX Last administered on 09/06/18at 02:00; Admin Dose 1 EA; Start 09/04/18 at 02:00 Ranitidine HCl (Zantac) 150 mg HS PO Last administered on 09/05/18 20:34; Admin Dose 150 MG; Start 09/03/18 at 21:00 Miscellaneous Information 1 ea NOTE XX ; Start 09/03/18 at 14:30 Glucose (Glutose) 15 gm Q15M PRN PO DECREASED GLUCOSE; Start 09/03/18 at 14:30 Glucose (Glutose) 22.5 gm Q15M PRN PO DECREASED GLUCOSE; Start 09/03/18 at 14:30 Dextrose (D50w Syringe) 25 ml Q15M PRN IV DECREASED GLUCOSE; Start 09/03/18 at 14:30 Dextrose (D50w Syringe) 50 ml Q15M PRN IV DECREASED GLUCOSE; Start 09/03/18 at 14:30 Glucagon (Glucagen) 1 mg Q15M PRN IM DECREASED GLUCOSE; Start 09/03/18 at 14:30 Glucose (Glutose) 15 gm Q15M PRN BUCCAL DECREASED GLUCOSE; Start 09/03/18 at 14:30 Linagliptin (Tradjenta) 5 mg DAILY PO Last administered on 09/06/18at 08:42; Admin Dose 5 MG; Start 09/04/18 at 09:00 Amlodipine Besylate (Norvasc) 10 mg DAILY PO Last administered on 09/06/18 08:41; Admin Dose 10 MG; Start 09/04/18 at 09:00 Benazepril HCl (Lotensin) 20 mg DAILY PO Last administered on 09/06/18 08:40; Admin Dose 20 MG; Start 09/04/18 at 09:00 EZETIMIBE (Zetia) 10 mg DAILY PO Last administered on 09/06/18 08:41; Admin Dose 10 MG; Start 09/04/18 at 09:00 Atorvastatin Calcium (Lipitor) 20 mg DAILY PO Last administered on 09/06/18 08:41; Admin Dose 20 MG; Start 09/04/18 at 09:00 Methocarbamol (Robaxin) 500 mg TID PRN PO MUSCLE SPASMS Last administered on 09/04/18 11:11; Admin Dose 500 MG; Start 09/03/18 at 14:45 Patient Own Medication 1 ea QHS PO Last administered on 09/05/18 20:35; Admin Dose 1 EA; Start 09/05/18 at 21:00 Diagnostic Test (Pha) (Accu-Chek) 1 ea 02 XX Last administered on 09/06/18 02:00; Admin Dose 1 EA; Start 09/06/18 at 02:00 Insulin Aspart (Novolog Insulin Pen) NOVOLOG *MODERATE* ALGORITHM WITH MEALS BEDTIME SC Last administered on 09/06/18 11:46; Admin Dose 4 UNIT; Start 09/05 at 12:00 Ferric Sodium Gluconate Complex 125 mg/Sodium Chloride 110 ml @ 110 mls/hr DAILY@1300 IVPB Last administered on 09/06/18 12:40; Admin Dose 110 MLS/HR; Start 09/05/18 at 13:00; Stop 09/09/18 at 13:59 Levalbuterol (Xopenex Neb) 0.63 mg Q6H RESP THERAPY HHN Last administered on 09/06/18 09:38; Admin Dose 0.63 MG; Start 09/05/18 at 20:00 Insulin Glargine (Lantus) 40 units DAILY@2000 ONCE SC ; Start 09/06/18 at 20:00; Stop 09/06/18 at 20:01 LE MINAYA MD Sep 06, 2018 13:20
[2018-09-06 15:25] VITALS: BP 128/74; PULSE 89; RESP 21
[2018-09-06 19:33] VITALS: BP 135/71; PULSE 69; RESP 18
[2018-09-06] MEDS ORDERED: INSULIN GLARGINE [LANTus] (100 UNITS/ML) SYG SC ONE (20:00)
[2018-09-06] MEDS: QUININE SULFATE 324 MG CAPSULE PO SCH (20:32)
[2018-09-06] MEDS: RANITIDINE 150 MG TAB PO SCH (20:33)
[2018-09-06] MEDS: traZODone 50 MG TAB PO SCH (20:33)
[2018-09-06] MEDS: DIAZEPAM 5 MG TAB PO SCH (20:33)
[2018-09-06 23:40] VITALS: BP 122/73; PULSE 77; RESP 21
[2018-09-07] MEDS: HYDROCODONE/APAP (5/325) TAB PO PRN ×2 (00:36→14:53)
[2018-09-07] MEDS: LEVALBUTEROL (NEB) 0.63 MG/3 ML AMP HHN SCH ×3 (01:07→14:49)
[2018-09-07] MEDS: ACCU-CHEK XX SCH ×2 (01:50)
[2018-09-07 03:27] VITALS: BP 135/66; PULSE 69; RESP 23
[2018-09-07] MEDS: SUCRALFATE 1 GM TAB PO SCH ×3 (07:00→13:20)
[2018-09-07 07:13] VITALS: BP 117/68; PULSE 65; RESP 20
--- NOTE | 2018-09-07 08:06 | PDOCDIS ---
Discharge Instructions CONDITION [id number] Patient Condition: [id number] Good HOME CARE INSTRUCTIONS: [id number] Diet Instructions: [id number] Regular ACTIVITY: [id number] Activity Restrictions: [id number] Avoid heavy lifting Avoid Heavy Housework [id number] Bathing Restrictions: [id number] Shower FOLLOW UP/APPOINTMENTS Follow-up Plan Follow-up with Dr. Minaya in 2 weeks LE MINAYA MD Sep 07, 2018 08:06
--- NOTE | 2018-09-07 08:06 | CONS ---
Consultation Date/Type/Reason Admit Date/Time Sep 03, 2018 at 05:45 Initial Consult Date Date/Time of Note DATE: 09/07/18 TIME: 08:01 24 HR Interval Summary Free Text/Dictation S: 52 yo M POD#4 s/p L3-4 lateral interbody fusion w/ lateral plate. His post- operative course has been complicated with episodes of O2 desaturation requiring O2. A CT angio was ordered which did not show e/o PE. Pulmonary is following the patient, He has a history of BPH and is on flomax. A maurer cath was also placed for urinary retention. He is currently taking PO [place] for his pain and is OOB w/ PT daily. He has been encouraged to use IS. He has been urinating well w/o maurer. O: Vital Signs Date Temp Pulse Resp B/P (MAP) Pulse Ox O2 O2 Flow FiO2 Time Delivery Rate 09/06/18 98.1 76 21 113/75 94 Nasal 11:20 (88) Cannula 09/06/18 3.0 07:45 09/05/18 44 19:35 Spine: 4/5 b/l HF/KE/TA/GS, +SILT L3-S1, dressing C/D/I A/P:52 yo M POD#4 s/p L3-4 lateral interbody fusion 1. Appreciate medicine and pulm recs 2. OOB w/ PT 4. D/C Home today if cleared by Medicine 5. Appreciate med recs 6. Home health set up for patient Exam/Review of Systems Exam Vitals Vital Signs Date Temp Pulse Resp B/P (MAP) Pulse Ox O2 O2 Flow FiO2 Time Delivery Rate 09/07/18 97.7 65 20 117/68 95 Nasal 07:13 (84) Cannula 09/07/18 4.0 01:07 09/06/18 33 14:22 Intake and Output 09/06/18 09/06/18 09/07/18 1515:00 23:00 07:00 IntakeIntake Total 365 ml 1510 ml 200 ml OutputOutput Total 1300 ml BalanceBalance 365 ml 210 ml 200 ml Results Result Diagram: 09/07/18 0456 09/07/18 0456 Results 24hrs Laboratory Tests Test 09/06/18 11:40 09/06/18 12:00 09/06/18 17:23 09/06/18 20:32 Bedside Glucose 218 273 H 272 H Blood Gas Blood arterial Specimen Source Arterial Blood 09/06/2018 12:35: Date Drawn 02 PM Arterial Blood pH 7.411 (Temp corrected) Arterial Blood 49.2 H pCO2 (Temp correct) Arterial Blood 55.8 L pO2 (Temp corrected) Arterial Blood 30.6 H HCO3 Arterial Blood 4.9 H Base Excess Arterial Blood 89.3 L Oxygen Saturation Clifford Test ACCEPTAB Arterial Blood Right Radial Gas Puncture Site Arterial 1.1 Blood Carboxyhemo globin Arterial Blood 0.1 Methemoglobin Blood Gas A-a O2 35.0 H Differential Oxyhemoglobin 88.2 L Percent Blood Gas 37.0 Temperature Blood Gas ROOM AIR Modality FiO2 21.0 Blood Gas TM Notified Whom Blood Gas 09/06/2018 12:44: Notified Time 40 PM Test 09/07/18 01:46 09/07/18 04:56 Bedside Glucose 283 H White Blood Count 5.3 Red Blood Count 4.89 Hemoglobin 13.1 L Hematocrit 40.7 L Mean Corpuscular 83.2 Volume Mean Corpuscular 26.8 L Hemoglobin Mean Corpuscular 32.2 Hemoglobin Concen t Red Cell 13.3 Distribution Width Platelet Count 172 Mean Platelet 9.4 Volume Immature 1.000 H Granulocytes % Neutrophils % 62.4 Lymphocytes % 18.7 Monocytes % 12.0 H Eosinophils % 5.1 Basophils % 0.8 Nucleated Red 0.0 Blood Cells % Immature 0.050 H Granulocytes # Neutrophils # 3.3 Lymphocytes # 1.0 Monocytes # 0.6 Eosinophils # 0.3 Basophils # 0.0 Nucleated Red 0.0 Blood Cells # Sodium Level 142 Potassium Level 3.9 Chloride Level 104 Carbon Dioxide 32 H Level Anion Gap 6 Blood Urea 20 Nitrogen Creatinine 0.83 Est Glomerular > 60 Filtrat Rate mL/min Glucose Level 254 H Calcium Level 8.8 Phosphorus Level 4.0 Magnesium Level 2.1 Medications Medication Current Medications Acetaminophen/ Hydrocodone Bitart ([place] (5/325)) 1 tab Q4H PRN PO .PAIN 1-5; Start 09/03/18 at 11:00 Acetaminophen/ Hydrocodone Bitart ([place] (5/325)) 2 tab Q4H PRN PO .PAIN 6-10 Last administered on 09/07/18at 00:36; Admin Dose 2 TAB; Start 09/03/18 at 11:00 Prochlorperazine (Compazine) 10 mg Q4H PRN PO NAUSEA/VOMITING; Start 09/03/18 at 11:00 Ondansetron HCl (Zofran Inj) 4 mg Q6H PRN IV NAUSEA/VOMITING; Start 09/03/18 at 11:00 Al Hydrox/Mg Hydrox/Simethicone (Mag-Al Plus) 15 ml Q4H PRN PO .CONSTIPATION; Start 09/03/18 at 11:00 Docusate Sodium (Colace) 100 mg BID PO Last administered on 09/05/18at 08:11; Admin Dose 100 MG; Start 09/04/18 at 09:00 Acetaminophen (Tylenol Tab) 650 mg Q4H PRN PO TEMP GREATER THAN 101F OR [place]NEJO Last administered on 09/05/18 15:41; Admin Dose 650 MG; Start 09/03/18 at 11:00 IV Flush (NS 3 ml) 3 ml PER PROTOCOL IV ; Start 09/03/18 at 11:00 Naloxone HCl (Narcan) 0.2 mg Q2M PRN IV RR 8 BREATHS/MIN OR LESS; Start 09/03/18 at 11:00 Allopurinol (Zyloprim) 300 mg DAILY PO Last administered on 09/06/18 08:42; Admin Dose 300 MG; Start 09/04/18 at 09:00 Diazepam (Valium) 10 mg QHS PO Last administered on 09/06/18 20:33; Admin Dose 10 MG; Start 09/03/18 at 21:00 Duloxetine HCl (Cymbalta) 40 mg DAILY PO Last administered on 09/06/18 08:43; Admin Dose 40 MG; Start 09/04/18 at 09:00 Metoclopramide HCl (Reglan) 10 mg WITH MEALS BEDTIME PO Last administered on 09/06/18 20:33; Admin Dose 10 MG; Start 09/03/18 at 18:00 Metoprolol Succinate (Toprol Xl) 50 mg DAILY PO Last administered on 09/06/18 08:40; Admin Dose 50 MG; Start 09/04/18 at 09:00 Pantoprazole (Protonix Tab) 40 mg DAILY PO Last administered on 09/06/18 08:42; Admin Dose 40 MG; Start 09/04/18 at 09:00 Sucralfate (Carafate) 1 gm AC MEALS AND BEDTIME PO Last administered on 09/06/18 20:33; Admin Dose 1 GM; Start 09/03/18 at 17:30 Tamsulosin HCl (Flomax) 0.4 mg DAILY PO Last administered on 09/06/18 08:41; Admin Dose 0.4 MG; Start 09/04/18 at 09:00 Trazodone HCl (Desyrel) 50 mg QHS PO Last administered on 09/06/18 20:33; Admin Dose 50 MG; Start 09/03/18 at 21:00 Diagnostic Test (Pha) (Accu-Chek) 1 ea 02 XX Last administered on 09/07/18at 01:50; Admin Dose 1 EA; Start 09/04/18 at 02:00 Ranitidine HCl (Zantac) 150 mg HS PO Last administered on 09/06/18 20:33; Admin Dose 150 MG; Start 09/03/18 at 21:00 Miscellaneous Information 1 ea NOTE XX ; Start 09/03/18 at 14:30 Glucose (Glutose) 15 gm Q15M PRN PO DECREASED GLUCOSE; Start 09/03/18 at 14:30 Glucose (Glutose) 22.5 gm Q15M PRN PO DECREASED GLUCOSE; Start 09/03/18 at 14:30 Dextrose (D50w Syringe) 25 ml Q15M PRN IV DECREASED GLUCOSE; Start 09/03/18 at 14:30 Dextrose (D50w Syringe) 50 ml Q15M PRN IV DECREASED GLUCOSE; Start 09/03/18 at 14:30 Glucagon (Glucagen) 1 mg Q15M PRN IM DECREASED GLUCOSE; Start 09/03/18 at 14:30 Glucose (Glutose) 15 gm Q15M PRN BUCCAL DECREASED GLUCOSE; Start 09/03/18 at 14:30 Linagliptin (Tradjenta) 5 mg DAILY PO Last administered on 09/06/18 08:42; Admin Dose 5 MG; Start 09/04/18 at 09:00 Amlodipine Besylate (Norvasc) 10 mg DAILY PO Last administered on 09/06/18 08:41; Admin Dose 10 MG; Start 09/04/18 at 09:00 Benazepril HCl (Lotensin) 20 mg DAILY PO Last administered on 09/06/18 08:40; Admin Dose 20 MG; Start 09/04/18 at 09:00 EZETIMIBE (Zetia) 10 mg DAILY PO Last administered on 09/06/18 08:41; Admin Do se 10 MG; Start 09/04/18 at 09:00 Atorvastatin Calcium (Lipitor) 20 mg DAILY PO Last administered on 09/06/18 08:41; Admin Dose 20 MG; Start 09/04/18 at 09:00 Methocarbamol (Robaxin) 500 mg TID PRN PO MUSCLE SPASMS Last administered on 09/04/18 11:11; Admin Dose 500 MG; Start 09/03/18 at 14:45 Patient Own Medication 1 ea QHS PO Last administered on 09/06/18 20:32; Admin Dose 1 EA; Start 09/05/18 at 21:00 Diagnostic Test (Pha) (Accu-Chek) 1 ea 02 XX Last administered on 09/07/18 01:50; Admin Dose 1 EA; Start 09/06/18 at 02:00 Insulin Aspart (Novolog Insulin Pen) NOVOLOG *MODERATE* ALGORITHM WITH MEALS BEDTIME SC Last administered on 09/06/18 20:41; Admin Dose 3 UNIT; Start 09/05/18 at 12:00 Ferric Sodium Gluconate Complex 125 mg/Sodium Chloride 110 ml @ 110 mls/hr DAILY@1300 IVPB Last administered on 09/06/18 12:40; Admin Dose 110 MLS/HR; Start 09/05/18 at 13:00; Stop 09/09/18 at 13:59 Levalbuterol (Xopenex Neb) 0.63 mg Q6H RESP THERAPY HHN Last administered on 09/06/18 19:32; Admin Dose 0.63 MG; Start 09/05/18 at 20:00 LE MINAYA MD Sep 07, 2018 08:06
[2018-09-07] MEDS: PANTOPRAZOLE (EC) 40 MG TAB PO SCH (08:14)
[2018-09-07] MEDS: EZETIMIBE 10 MG TAB PO SCH (08:14)
[2018-09-07] MEDS: ATORVASTATIN 20 MG TAB PO SCH (08:14)
[2018-09-07] MEDS: DOCUSATE SODIUM 100 MG CAP PO SCH (08:14)
[2018-09-07] MEDS: TAMSULOSIN (SR) 0.4 MG CAP PO SCH (08:14)
[2018-09-07] MEDS: METOPROLOL (XL) 50 MG TAB PO SCH (08:15)
[2018-09-07] MEDS: BENAZEPRIL 20 MG TAB PO SCH (08:15)
[2018-09-07] MEDS: ALLOPURINOL 300 MG TAB PO SCH (08:15)
[2018-09-07] MEDS: LINAGLIPTIN 5 MG TABLET PO SCH (08:15)
[2018-09-07] MEDS: METOCLOPRAMIDE 10 MG TAB PO SCH ×3 (08:16→13:20)
[2018-09-07] MEDS: DULOXETINE 20 MG CAP DR PO SCH (08:16)
[2018-09-07] MEDS: AMLODIPINE 10 MG TAB PO SCH (08:16)
--- NOTE | 2018-09-07 08:35 | CONS ---
Assessment/Plan Assessment/Plan Assessment/Plan (Daily) 1. Post op lumbar spine surgery 2. Somnolent, ? reduce pain meds 3. Hypoxemia prob sec to atelectasis and hypercapnea (obesity and releated restrictive lung dz) 5. Voiding dysfx, await post void bladder bonnie Consultation Date/Type/Reason Admit Date/Time Sep 03, 2018 at 05:45 Initial Consult Date Date/Time of Note DATE: 09/07/18 TIME: 08:32 24 HR Interval Summary Constitutional: other (lethargic but arrouseable (received pain med last night)) Detailed Summary Respiratory: No shortness of breath Cardiovascular: No chest pain Gastrointestinal: no complaints Genitourinary: no complaints Musculoskeletal: back pain (mild) Exam/Review of Systems Exam Vitals Vital Signs Date Temp Pulse Resp B/P (MAP) Pulse Ox O2 O2 Flow FiO2 Time Delivery Rate 09/07/18 70 19 94 Nasal 4.0 08:21 Cannula 09/07/18 97.7 117/68 07:13 (84) 09/06/18 33 14:22 Intake and Output 09/06/18 09/06/18 09/07/18 1515:00 23:00 07:00 IntakeIntake Total 365 ml 1510 ml 200 ml OutputOutput Total 1300 ml BalanceBalance 365 ml 210 ml 200 ml Neck: No jvd Respiratory: clear to auscultation Cardiovascular: regular rate and rhythm Gastrointestinal: soft Extremities: No edema, No pitting pedal edema, No tenderness Results Result Diagram: 09/07/18 0456 09/07/18 0456 Results 24hrs Laboratory Tests Test 09/06/18 11:40 09/06/18 12:00 09/06/18 17:23 09/06/18 20:32 Bedside Glucose 218 273 H 272 H Blood Gas Blood arterial Specimen Source Arterial Blood 09/06/2018 12:35: Date Drawn 02 PM Arterial Blood pH 7.411 (Temp corrected) Arterial Blood 49.2 H pCO2 (Temp correct) Arterial Blood 55.8 L pO2 (Temp corrected) Arterial Blood 30.6 H HCO3 Arterial Blood 4.9 H Base Excess Arterial Blood 89.3 L Oxygen Saturation Clifford Test ACCEPTAB Arterial Blood Right Radial Gas Puncture Site Arterial 1.1 Blood Carboxyhemo globin Arterial Blood 0.1 Methemoglobin Blood Gas A-a O2 35.0 H Differential Oxyhemoglobin 88.2 L Percent Blood Gas 37.0 Temperature Blood Gas ROOM AIR Modality FiO2 21.0 Blood Gas TM Notified Whom Blood Gas 09/06/2018 12:44: Notified Time 40 PM Test 09/07/18 01:46 09/07/18 04:56 09/07/18 08:13 Bedside Glucose 283 H 212 White Blood Count 5.3 Red Blood Count 4.89 Hemoglobin 13.1 L Hematocrit 40.7 L Mean Corpuscular 83.2 Volume Mean Corpuscular 26.8 L Hemoglobin Mean Corpuscular 32.2 Hemoglobin Concen t Red Cell 13.3 Distribution Width Platelet Count 172 Mean Platelet 9.4 Volume Immature 1.000 H Granulocytes % Neutrophils % 62.4 Lymphocytes % 18.7 Monocytes % 12.0 H Eosinophils % 5.1 Basophils % 0.8 Nucleated Red 0.0 Blood Cells % Immature 0.050 H Granulocytes # Neutrophils # 3.3 Lymphocytes # 1.0 Monocytes # 0.6 Eosinophils # 0.3 Basophils # 0.0 Nucleated Red 0.0 Blood Cells # Sodium Level 142 Potassium Level 3.9 Chloride Level 104 Carbon Dioxide 32 H Level Anion Gap 6 Blood Urea 20 Nitrogen Creatinine 0.83 Est Glomerular > 60 Filtrat Rate mL/min Glucose Level 254 H Calcium Level 8.8 Phosphorus Level 4.0 Magnesium Level 2.1 Medications Medication Current Medications Acetaminophen/ Hydrocodone Bitart (Cooter (5/325)) 1 tab Q4H PRN PO .PAIN 1-5; Start 09/03/18 at 11:00 Acetaminophen/ Hydrocodone Bitart (Cooter (5/325)) 2 tab Q4H PRN PO .PAIN 6-10 Last administered on 09/07/18at 00:36; Admin Dose 2 TAB; Start 09/03/18 at 11:00 Prochlorperazine (Compazine) 10 mg Q4H PRN PO NAUSEA/VOMITING; Start 09/03/18 at 11:00 Ondansetron HCl (Zofran Inj) 4 mg Q6H PRN IV NAUSEA/VOMITING; Start 09/03/18 at 11:00 Al Hydrox/Mg Hydrox/Simethicone (Mag-Al Plus) 15 ml Q4H PRN PO .CONSTIPATION; Start 09/03/18 at 11:00 Docusate Sodium (Colace) 100 mg BID PO Last administered on 09/05/18 08:11; Admin Dose 100 MG; Start 09/04/18 at 09:00 Acetaminophen (Tylenol Tab) 650 mg Q4H PRN PO TEMP GREATER THAN 101F OR CORNEJO Last administered on 09/05/18 15:41; Admin Dose 650 MG; Start 09/03/18 at 11:00 IV Flush (NS 3 ml) 3 ml PER PROTOCOL IV ; Start 09/03/18 at 11:00 Naloxone HCl (Narcan) 0.2 mg Q2M PRN IV RR 8 BREATHS/MIN OR LESS; Start 09/03/18 at 11:00 Allopurinol (Zyloprim) 300 mg DAILY PO Last administered on 09/06/18 08:42; Admin Dose 300 MG; Start 09/04/18 at 09:00 Diazepam (Valium) 10 mg QHS PO Last administered on 09/06/18 20:33; Admin Dose 10 MG; Start 09/03/18 at 21:00 Duloxetine HCl (Cymbalta) 40 mg DAILY PO Last administered on 09/06/18 08:43; Admin Dose 40 MG; Start 09/04/18 at 09:00 Metoclopramide HCl (Reglan) 10 mg WITH MEALS BEDTIME PO Last administered on 09/06/18 20:33; Admin Dose 10 MG; Start 09/03/18 at 18:00 Metoprolol Succinate (Toprol Xl) 50 mg DAILY PO Last administered on 09/06/18 08:40; Admin Dose 50 MG; Start 09/04/18 at 09:00 Pantoprazole (Protonix Tab) 40 mg DAILY PO Last administered on 09/06/18 08:42; Admin Dose 40 MG; Start 09/04/18 at 09:00 Sucralfate (Carafate) 1 gm AC MEALS AND BEDTIME PO Last administered on 09/06/18 20:33; Admin Dose 1 GM; Start 09/03/18 at 17:30 Tamsulosin HCl (Flomax) 0.4 mg DAILY PO Last administered on 09/06/18 08:41; Admin Dose 0.4 MG; Start 09/04/18 at 09:00 Trazodone HCl (Desyrel) 50 mg QHS PO Last administered on 09/06/18 20:33; Admin Dose 50 MG; Start 09/03/18 at 21:00 Diagnostic Test (Pha) (Accu-Chek) 1 ea 02 XX Last administered on 09/07/18at 01:50; Admin Dose 1 EA; Start 09/04/18 at 02:00 Ranitidine HCl (Zantac) 150 mg HS PO Last administered on 09/06/18at 20:33; Admin Dose 150 MG; Start 09/03/18 at 21:00 Miscellaneous Information 1 ea NOTE XX ; Start 09/03/18 at 14:30 Glucose (Glutose) 15 gm Q15M PRN PO DECREASED GLUCOSE; Start 09/03/18 at 14:30 Glucose (Glutose) 22.5 gm Q15M PRN PO DECREASED GLUCOSE; Start 09/03/18 at 14:30 Dextrose (D50w Syringe) 25 ml Q15M PRN IV DECREASED GLUCOSE; Start 09/03/18 at 14:30 Dextrose (D50w Syringe) 50 ml Q15M PRN IV DECREASED GLUCOSE; Start 09/03/18 at 14:30 Glucagon (Glucagen) 1 mg Q15M PRN IM DECREASED GLUCOSE; Start 09/03/18 at 14:30 Glucose (Glutose) 15 gm Q15M PRN BUCCAL DECREASED GLUCOSE; Start 09/03/18 at 14:30 Linagliptin (Tradjenta) 5 mg DAILY PO Last administered on 09/06/18at 08:42; Admin Dose 5 MG; Start 09/04/18 at 09:00 Amlodipine Besylate (Norvasc) 10 mg DAILY PO Last administered on 09/06/18at 08:41; Admin Dose 10 MG; Start 09/04/18 at 09:00 Benazepril HCl (Lotensin) 20 mg DAILY PO Last administered on 09/06/18at 08:40; Admin Dose 20 MG; Start 09/04/18 at 09:00 EZETIMIBE (Zetia) 10 mg DAILY PO Last administered on 09/06/18at 08:41; Admin Dose 10 MG; Start 09/04/18 at 09:00 Atorvastatin Calcium (Lipitor) 20 mg DAILY PO Last administered on 09/06/18at 08:41; Admin Dose 20 MG; Start 09/04/18 at 09:00 Methocarbamol (Robaxin) 500 mg TID PRN PO MUSCLE SPASMS Last administered on 09/04/18at 11:11; Admin Dose 500 MG; Start 09/03/18 at 14:45 Patient Own Medication 1 ea QHS PO Last administered on 09/06/18 20:32; Admin Dose 1 EA; Start 09/05/18 at 21:00 Diagnostic Test (Pha) (Accu-Chek) 1 ea 02 XX Last administered on 09/07/18 01:50; Admin Dose 1 EA; Start 09/06/18 at 02:00 Insulin Aspart (Novolog Insulin Pen) NOVOLOG *MODERATE* ALGORITHM WITH MEALS BEDTIME SC Last administered on 09/06/18 20:41; Admin Dose 3 UNIT; Start 09/05/18 at 12:00 Ferric Sodium Gluconate Complex 125 mg/Sodium Chloride 110 ml @ 110 mls/hr DAILY@1300 IVPB Last administered on 09/06/18at 12:40; Admin Dose 110 MLS/HR; Start 09/05/18 at 13:00; Stop 09/09/18 at 13:59 Levalbuterol (Xopenex Neb) 0.63 mg Q6H RESP THERAPY HHN Last administered on 09/07/18 08:21; Admin Dose 0.63 MG; Start 09/05/18 at 20:00 DIANA PAZ MD Sep 07, 2018 08:35
[2018-09-07] MEDS: INSULIN ASPART [NOVOLOG] 3 ML PEN SC SCH ×3 (09:04→13:36)
[2018-09-07 11:12] VITALS: BP 135/84; PULSE 73; RESP 20
[2018-09-07] MEDS: SOD FERRIC GLUC COMPLX 125 MG in SOD CHLORIDE 0.9% 100 ML IVPB SCH (13:00)
[2018-09-07 15:14] VITALS: BP 119/71; PULSE 79; RESP 20
[2018-09-07] MEDS ORDERED: INSULIN GLARGINE [LANTus] (100 UNITS/ML) SYG SC SCH (20:00)
== END 2018-09-07 17:19 | disposition home or self-care (01) | DRG 460 ==
LOC: EDSTATUS 07:30 → REC 09-03 05:45 → MS1 09-03 12:18 → 6WM 09-05 03:19
PROVIDERS: ADMIT Orthopaedic Surgery; ATTEND Orthopaedic Surgery
PROC: 0SB20ZZ Excision of Lumbar Vertebral Disc, Open Approach (ICD-10-PCS; 2018-09-03)
PROC: 4A11X4G Monitoring of Peripheral Nervous Electrical Activity, Intraoperative, External Approach (ICD-10-PCS; 2018-09-03)
PROC: 0SG00A0 Fusion of Lumbar Vertebral Joint with Interbody Fusion Device, Anterior Approach, Anterior Column, Open Approach (ICD-10-PCS; principal; 2018-09-03 07:30)
DX: M51.16 Intervertebral disc disorders with radiculopathy, lumbar region (principal); Z68.41 Body mass index [BMI] 40.0-44.9, adult; J98.11 Atelectasis; E66.2 Morbid (severe) obesity with alveolar hypoventilation; M48.061 Spinal stenosis, lumbar region without neurogenic claudication; E11.40 Type 2 diabetes mellitus with diabetic neuropathy, unspecified; I10 Essential (primary) hypertension; R50.82 Postprocedural fever; F32.9 Major depressive disorder, single episode, unspecified; G43.909 Migraine, unspecified, not intractable, without status migrainosus; R41.0 Disorientation, unspecified; R09.02 Hypoxemia; R33.9 Retention of urine, unspecified; E78.5 Hyperlipidemia, unspecified; K21.9 Gastro-esophageal reflux disease without esophagitis; M10.9 Gout, unspecified; Z98.1 Arthrodesis status; Z79.4 Long term (current) use of insulin
CPT/HCPCS: 36600; 71045; 71275; 72110; 80048; 81003; 82728; 82803; 82962; 83540; 83735; 83880; 84100; 84145; 84484; 85014; 85018; 85025; 86850; 86900; 86901; 87086; 94640; 97116; 97162; 97164; 97530; J0690; J1170; J1815; J2175; J2405; J2543; J2710; J2916; J3370; J7030; J7040; J7050; J7120; Q9967